=== PATIENT | female | born 1975 | race Caucasian/White ===

== ENCOUNTER → 2018-05-16 15:35 | Outpatient (CLI) | payer OTHER, SELFPAY | PROVIDERS: PCP Family Medicine; Visit Provider Physician Assistant | DX: N81.10 Cystocele, unspecified (principal) | CPT/HCPCS: 87210 ==

== ENCOUNTER 2018-06-23 07:57 | Day surgery (SDC) | payer OTHER, SELFPAY ==
[2018-06-16 16:30] VITALS: BMI 28.1
[2018-06-23] VITALS (13 sets, daily range): BP systolic 102–145; BP diastolic 56–91; PULSE 63–82; RESP 15–18; TEMP 36.2–37.3; O2SAT 95–100; BMI 29.0; BMI 28.1
--- NOTE | 2018-06-23 | PATH_ITS ---
[facility] Accession Number: [id number] . 01 Material submitted: . UTERUS,CERVIX AND BILATERAL FALLOPIAN TUBES . 02 Diagnosis: Uterus With Bilateral Fallopian Tubes: Early proliferative endometrium with disordered maturation and focal changes of glandular and stromal breakdown, negative for atypia. Atrophic changes, fallopian tubes. [facility] . 02 Electronically signed: . Austin Hancock MD, Pathologist NPI- [id number] . 01 Gross description: . Received in formalin, labeled uterus, cervix, bilateral fallopian tubes, is a uterus (125 grams, 4.4 cm AP, 10.2 cm SI, 4.8 cm ML) with attached fimbriated fallopian tubes (right: length-4.5 cm, diameter-0.4 cm; left: length-4.5 cm, diameter-0.4 cm). The ovaries are absent. The cervix (3.5 cm AP, 5.1 cm ML) has a vaginal cuff (up to 2.2 cm in depth), transverse os, and patent endocervical canal. The endometrium (average thickness-0.1 cm) is navarrete-pink smooth and flat. The myometrium (thickness-2.1 cm) is navarrete and unremarkable. The serosa is pale navarrete smooth and shiny. The fallopian tubes have salazar-purple smooth and shiny serosa and pale navarrete unremarkable lumens. Section code: (A1-A2) anterior cervix, bisected and submitted SI; (A3-A4) posterior cervix, bisected and submitted SI; (A5, A6) anterior endomyometrium; (A7, A8) posterior endomyometrium; (A9) right fallopian tube, hr representative serial section; (A10) right fimbria, bivalved, entirely submitted; (A11) left fallopian tube, hr representative serial section; (A12) left fimbria, bivalved, entirely submitted. ([id number]) /[facility] . 02 Pathologist provided ICD-10: N81.4 . 02 CPT . 569842 Performed at: 01 [facility] [address] [place] [address], [place], [place] [id number] MD Bernabe Smith MD Phone: [phone] Performed at: [address] [place] [id number] [place], [place] [id number] MD Kwesi Burrell MD Phone: [phone]
--- NOTE | 2018-06-23 09:14 | PM.PREOP ---
Pre-operative Note Interval Note Pre-op Check: Yes History & Physical Reviewed by Physician Changes: No
--- NOTE | 2018-06-23 09:21 | SUR.OPER ---
Lithotomy on padded OR bed. Joppa Pad Positioner under torso. Head on pillow, arms padded and tucked at sides. Legs secured in padded yellow fins stirrups.
[2018-06-23] MEDS: LACTATED RINGERS 1,000 ML 100 ML IV ×3 (09:37→23:37)
[2018-06-23] MEDS: APREPITANT 40 MG CAPSULE PO (09:40)
[2018-06-23] MEDS: CEFAZOLIN 2 GM/100 ML FROZ.PIGGY IV (09:45)
[2018-06-23] MEDS: BUPIVACAINE 0.5% W/ EPI (PF) VIAL 30 ML INJ (11:00)
[2018-06-23] MEDS: fentaNYL 100 MCG/2 ML INJ 25 MCG IV ×2 (13:03→13:08)
[2018-06-23] MEDS: OXYCODONE/ACETAMINOPHEN 5/325 TABLET 2 TAB PO ×3 (14:29→23:02)
[2018-06-23] MEDS: LOSARTAN 25 MG TABLET PO (20:36)
[2018-06-23] MEDS: ATORVASTATIN 20 MG TABLET PO (20:36)
[2018-06-23] MEDS: DOCUSATE 250 MG CAPSULE PO (20:55)
[2018-06-24 05:52] VITALS: BP 121/64; PULSE 68; RESP 16; TEMP 36.5; O2SAT 97
[2018-06-24 06:15] LABS: Add Manual Diff / Slide Review NO; Basophils Percent Auto 0.1 % (0-2); Hematocrit 34.4 % (36-46); Hemoglobin 11.9 g/dL (12.0-16.0); Lymphocytes Percent Auto 9.6 % (25-40); Mean Corpuscular HGB Conc 34.7 % (30-36); Mean Corpuscular Hemoglobin 33.2 PG (26-34); Mean Corpuscular Volume 95.5 fL (80-100); Monocytes Percent Auto 7.6 % (3-14); Neutrophils Absolute Auto 8900 /uL (3000-5900); Neutrophils Percent Auto 82.7 % (50-75); Platelet Count 234 X10^3/uL (150-400); Red Cell Distribution Width 12.2 % (11.6-14.8); White Blood Cell Count 10.8 X10^3/uL (4.5-11.0)
[2018-06-24] MEDS: OXYCODONE/ACETAMINOPHEN 5/325 TABLET 2 TAB PO ×3 (06:40→11:56)
--- NOTE | 2018-06-24 06:55 | PC.NURSE ---
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 Maddi LYMAN'd, pt thought that she needed to void but unable to. Scant bloody drainage on shaggy pad.
[2018-06-24 07:50] VITALS: BP 123/74; PULSE 62; RESP 18; TEMP 36.6; O2SAT 97
[2018-06-24] MEDS: LOSARTAN 25 MG TABLET PO (09:27)
[2018-06-24] MEDS: DOCUSATE 250 MG CAPSULE PO (09:27)
--- NOTE | 2018-06-24 11:41 | PC.NURSE ---
Addendum entered by Karen Quintanilla R.N. 06/24/18 12:27: Pt had a small amount of bleeding when inserting mitchell catheter from vagina, and also a small amount of bleeding in the urine. Pt has stitches to the distal end of her vagina that are cdi. Wearing a shaggy pad with minimal bleeding. Original Note: Assess- Pt is a&ox3. Mitchell catheter taken out at 0645. Pt voided a small amount that was unmeasureble as it missed the hat. Then around 1015 pt was able to void 100cc and then up and voided 50cc more. Pt bladder scanned for above 999 in bladder.Called who gave orders to in/out cath pt and then do post void residual. After straight cath pt had 800cc of yellow clear urine out and 84cc left in bladder. Phoned Dr. Gonsales about this and she ordered pt to have a mitchell catheter inserted until saturday and she can go home today. Will go over leg bag teaching with patient and how to change bags. She is not happy about having to take mitchell home with her and states that it feels like she has to void all the time. Pts mother out here and stated that pt was unhappy about having the catheter and wondered if she could stay another night and try to go to the bathroom on her own. Called Trisha Al of [facility], and most likely pt would have to have the mitchell catheter in until saturday, as when the bladder is stretched it takes a few days to recover. Pt is also going to go home with oral antibiotics bid. Given 1 percocet earlier and a bit helpful.
--- NOTE | 2018-06-24 14:50 | CM.DANOTE ---
DCP Chart Review/Discharge Home Patient is a 43 year old female who was admitted on 06/23/18 for LAVH MARCUS Salpingectomy. Pt has [facility] for insurance and her PCP is Dr. Moon. EMR was reviewed. Per MD, pt is medically stable to d/c home today with no identified barriers to discharge. Per RN, pt having some urinary retention and discharging home with straight cath supplies. No bedside assessment due to lack of needs identified and triage needs. Plan: Patient to d/c home today via POV and no SW needs at this time. SAL Watts
--- NOTE | 2018-07-18 12:18 | PM.GYNOP.1 ---
Operative Date/Time/Diagnoses Date of procedure: 06/23/18 Time of procedure: 10:45 Pre-op diagnosis: Uterine prolapse Cystocele Rectocele Post-op diagnosis: same Procedure: Procedures Operation Date: 06/23/18 09:45 Actual Procedures Side Surgeon s Laparoscopic Salpingectomy Bilateral Tila Gonsales MD p Colporrhaphy Anterior/Posterior Colporrhaphy WITH PERINEORRAPHY MD bao Ng Laparoscopic Assisted Vag Hysterectomy Tila Gonsales MD Indications: Uterine prolapse Cystocele and rectocele Surgeon: Tila Gonsales Inspector Barrel: Felix Huber Anesthesia Type: General Operative Notes Findings: 7 week size prolapsed uterus Third-degree rectocele Third-degree cystocele Normal tubes and ovaries Closure Type: primary Specimen(s): left tube, right tube and uterus Applied: catheter Estimated blood loss (mL): 75 Blood products transfused: none Procedure in detail: Complications: none Post-operative Condition: stable Disposition: PACU Plan for aftercare: To Acute Care after recovery
== END 2018-06-24 12:53 | disposition home or self-care (01) ==
LOC: OR 07:58 → AC 07:59
PROVIDERS: PCP Family Medicine; Visit Provider Obstetrics & Gynecology
PROC: 0UT74ZZ Resection of Bilateral Fallopian Tubes, Percutaneous Endoscopic Approach (ICD-10-PCS; CPT 58661; 2018-06-23 09:45)
PROC: (CPT 58552; 2018-06-23 09:45)
PROC: 0UT9FZZ Resection of Uterus, Via Natural or Artificial Opening With Percutaneous Endoscopic Assistance (ICD-10-PCS; CPT 58552; 2018-06-23 09:45)
DX: N81.2 Incomplete uterovaginal prolapse (principal); N81.6 Rectocele
CPT/HCPCS: 58552; 57260; 36415; 85025; J0690; J1100; J2250; J2405; J2704; J3010; J8501

== ENCOUNTER 2018-06-24 20:50 | Emergency (ER) | payer OTHER, SELFPAY ==
[2018-06-23 09:05] VITALS: BMI 29.0
[2018-06-24 21:28] VITALS: BP 162/78; PULSE 74; RESP 16; TEMP 36.5; O2SAT 100; BMI 29.0
[2018-06-24 21:40] LABS: Bacteria Urine None Seen; RBC Urine None Seen (0-5/HPF); WBC Urine None Seen (0-5/HPF)
[2018-06-24 21:42] LABS: Appearance Urine UA CLEAR; Bilirubin Urine UA NEGATIVE (NEGATIVE); Color Urine UA YELLOW; Glucose Urine UA NEGATIVE (Normal); Ketones Urine UA NEGATIVE (NEGATIVE); Leukocyte Esterase Urine UA NEGATIVE (NEGATIVE); Nitrite Urine UA Negative (Negative); Occult Blood Urine UA TRACE-LYSED (Negative); Protein Urine UA NEGATIVE (Negative); Urobilinogen Urine UA 0.2 E.U./dL (0.2); pH Urine UA 5.5 (4.5-8.0)
[2018-06-24 21:52] LABS: Culture Indicated Urine Cult Not Indicated
--- NOTE | 2018-06-24 23:12 | ED.FEMALEGU ---
HPI - Female Genitourinary General Chief complaint: Urogenital-Female Stated complaint: THINKS PROBLEM WITH URINARY CATHETER Time Seen by Provider: 06/24/18 22:24 Source: patient Mode of arrival: ambulatory Limitations: no limitations History of Present Illness HPI Narrative: Patient is here for evaluation of problems with her urinary catheter. The day prior to arrival here in the emergency department patient had a hysterectomy performed here at [facility]. She states that she had the Linda catheter in place overnight and had it removed the morning of her visit here to the ER. She remained in the hospital. She states she did not urinate within 3 hr of the catheter being removed so she states that they ?put another 1 in to drain my bladder ?and then this 1 was removed. She states that she again did not urinate so they placed another Linda catheter and left it in. She was discharged home. She states since then she has had quite a bit of pain from the Linda catheter and cramping. Related Data Home Medications Medication Instructions Recorded Confirmed aspirin 81 mg PO DAILY 06/17/18 06/23/18 atorvastatin 20 mg PO QPM 06/17/18 06/23/18 losartan 25 mg PO BID 06/23/18 06/23/18 multivitamin 1 tab PO DAILY 06/23/18 06/23/18 Previous Rx's Medication Instructions Recorded losartan [Cozaar] 50 mg PO QDAY #90 tab 01/08/17 nitrofurantoin 1 cap PO Q12H 5 Days #10 cap 06/24/18 monohydrate/macrocrystals 100 mg capsule oxycodone-acetaminophen [Percocet] 2 tab PO Q4-6H PRN #30 tab 06/24/18 Allergies Allergy/AdvReac Type Severity Reaction Status Date / Time No Known Drug Allergies Allergy Verified 06/23/18 09:14 Review of Systems Constitutional Denies fever(s) Cardiovascular Denies dyspnea Respiratory Denies cough and Denies dyspnea Genitourinary Comments: Pain and cramping from the Linda catheter Integumentary/Breasts Denies pruritus, Denies lesions and Denies rash Hematologic/Lymphatic Denies easy bleeding and Denies easy bruising [facility] Medical History Dyslipidemia (Acute) Heart murmur, systolic (Acute) Ischemic cardiomyopathy (Acute) Lupus (Acute) Malar rash (Acute) Positive GENA (antinuclear antibody) (Acute) Uterine prolapse (Acute) Hypertension (Chronic 2013) Rosacea (Chronic) Aortic stenosis (Resolved 2013) Myocardial infarction (Resolved) Surgical History H/O hernia repair (Acute) Anesthesia (Resolved) History of abdominoplasty (Resolved 2005) History of angioplasty (Resolved 09/2014) Status post LASIK surgery (Resolved) Family History Father Age: 66 Esophageal cancer Hypertension High cholesterol Mother Age: 65 Hypertension Social History marital status: household members: spouse, family and children Smoking Status: Never smoker alcohol intake: current substance use type: does not use Exam Initial Vital Signs Initial Vital Signs: Vital Signs Temperature 97.7 F 06/24/18 21:28 Pulse Rate 74 06/24/18 21:28 Respiratory Rate 16 06/24/18 21:28 Blood Pressure 162/78 H 06/24/18 21:28 Pulse Oximetry 100 06/24/18 21:28 Const General: cooperative, healthy appearing, well developed, well groomed and No acute distress Orientation: alert, awake and oriented x3 HENMT Head: normal to inspection and normocephalic Resp Effort & Inspection: normal respiratory effort Skin Lesions: no lesions Rashes: no rashes Neuro General: alert, awake and oriented x3 Cognition: normal cognition Speech: speech normal Extrem General: normal to inspection and capillary refill normal Psych Appearance: grossly normal and well kempt Course Orders Ordered: ED Orders 06/24/18 21:39 Urinalysis and Microscopic Stat Discontinued Medications Lidocaine HCl (Xylocaine Jelly 2%) 1 applic TOP NOW ONE Stop: 06/24/18 23:33 Last Admin: 06/25/18 00:13 Dose: 1 applic Vital Signs - 8 hr 06/24/18 21:28 06/25/18 00:05 Temperature 97.7 F 98.2 F Pulse Rate 74 72 Respiratory Rate 16 18 Blood Pressure 162/78 H 152/70 H Pulse Oximetry 100 100 MDM - Female Genitourinary Lab Data Lab Results 06/24/18 Range/Units 21:39 Urine Color Yellow Urine Appearance Clear Urine pH 5.5 (4.5-8.0) Ur Specific [place] 1.010 (1.000-1.035) Urine Protein Negative (Negative) Urine Glucose (UA) Negative (Normal) g/dL Urine Ketones Negative (NEGATIVE) Urine Occult Blood Trace-lysed (Negative) Urine Nitrate Negative (Negative) Urine Bilirubin Negative (NEGATIVE) Urine Urobilinogen 0.2 (0.2) E.U./dL Ur Leukocyte Esterase Negative (NEGATIVE) Urine RBC None seen (0-5/HPF) Urine WBC None seen (0-5/HPF) Urine Bacteria None seen (None) Ur Culture Indicated? Cult not indicated Micro UA Comment Not Reportable MDM Narrative Medical decision making narrative: Had a long discussion with the patient regarding her symptoms. We did discuss why she had the catheter in. She states she does have a follow up on Saturday with her blowing weasand provider to have the catheter removed. We did discuss her options to include leaving the Linda catheter in and starting her on an antispasm medication in prescribing her some lidocaine jelly for the irritation. Informed her that this was probably her best option given the fact that she failed 2x do to void earlier today. We also discussed the option of removing the catheter here in the emergency department and setting another due to void for her at home. Informed her that taking the catheter out here in the emergency department may mean that she would have to return to the ER to have another catheter placed. Also informed her that if we took it out there is the possibility that she would be able to urinate on her own and she could avoid having the catheter in. After this discussion the patient opted to have the catheter removed here in the ER. Nursing staff here in the emergency department who took the catheter out informed me that they were somewhat concerned that the catheter was not initially in the right place. Nursing staff stated that the amount of the catheter that came out of the urethra was less than with a would have expected. Patient did try to use the bathroom here in the emergency department before leaving however was unable to. She was given lidocaine jelly for the irritation at the urethra. Informed the patient that if she did not urinate in 6 hr that she needed to increase her fluid intake and if she still has not urinated by 8 hr she needed to return to the emergency department. She was informed that she could return sooner if she felt like her abdomen was distending are she was becoming more uncomfortable. She expressed understanding and agreement with plan. Discharge Plan Departure Patient Disposition: Home, Self-Care Clinical Impression: Complication of Linda catheter Discharge Date/Time: 06/25/18 00:05 Interventions: ED Discharge Assessment Last Done: 06/25/18 00:05 Instructions: DI for Urinary Retention in Women Activity Restrictions/Additional Instructions: If you have not urinated within 8 hr of discharge from the emergency department you do need to be seen again. You can call the OB provider for a follow-up or return here to the emergency department. Return sooner if you start having more pain or worsening abdominal distention. Continue all of your medications as directed. Prescriptions: No Action losartan [Cozaar] 50 MG tablet 50 mg PO QDAY Qty: 90 RF: 3 nitrofurantoin monohyd/m-cryst [Macrobid] 100 mg capsule 1 cap PO Q12H 5 Days Qty: 10 RF: 0 atorvastatin 80 mg Tablet 20 mg PO QPM RF: 0 aspirin 81 mg Tablet,Delayed Release (Dr/Ec) 81 mg PO DAILY RF: 0 multivitamin Tablet 1 tab PO DAILY RF: 0 losartan 50 mg tablet 25 mg PO BID RF: 0 oxycodone-acetaminophen [Percocet] 5-325 mg tablet 2 tab PO Q4-6H PRN (Reason: pain) Qty: 30 RF: 0
[2018-06-25 00:05] VITALS: BP 152/70; PULSE 72; RESP 18; TEMP 36.8; O2SAT 100
[2018-06-25] MEDS: LIDOCAINE JELLY 2% 5 ML 1 APPLIC TOP (00:13)
== END 2018-06-25 00:05 | disposition home or self-care (01) ==
PROVIDERS: Emergency Provider Emergency Medicine; Family Provider Family Medicine; PCP Family Medicine; Referring Provider Obstetrics & Gynecology
DX: T83.9XXA Unspecified complication of genitourinary prosthetic device, implant and graft, initial encounter (principal)
CPT/HCPCS: 51798; 81001; 99283

== ENCOUNTER → 2018-07-18 17:00 | Outpatient (CLI) | payer OTHER, SELFPAY ==
[2018-06-23 09:05] VITALS: BMI 29.0
[2018-07-18 18:03] LABS: HEMOLYSIS < 15 (0-50); Iron 80 ug/dL (37-170)
[2018-07-18 18:13] LABS: Percent Iron Saturation 20 % (15-50); Total Iron Binding Capacity 393 ug/dL (265-497); Transferrin 320 mg/dL (206-381)
[2018-07-18 18:18] LABS: Free T4, Direct Thyroxine 1.01 ng/dL (0.78-2.19)
[2018-07-18 18:32] LABS: Thyroid Stimulating Hormone 1.96 uIU/mL (0.47-4.68)
== END ==
PROVIDERS: PCP Family Medicine; Visit Provider Obstetrics & Gynecology
DX: L56.9 Acute skin change due to ultraviolet radiation, unspecified (principal); L65.9 Nonscarring hair loss, unspecified
CPT/HCPCS: 36415; 83540; 83550; 84439; 84443

== ENCOUNTER → 2018-11-06 10:20 | Outpatient (CLI) | payer OTHER, SELFPAY ==
[2018-06-23 09:05] VITALS: BMI 29.0
--- NOTE | 2018-11-06 10:22 | DI.RAD.S_ITS ---
PROCEDURE: XR CERVICAL SPINE 2V OR 3V INDICATIONS: cervical neck pain TECHNIQUE: 3 view(s) of the cervical spine were acquired. COMPARISON: None. FINDINGS: Bones: No fractures or dislocations to the T1 level. The lateral masses of C1 appear intact on the odontoid view. No suspicious bony lesions. Diffuse facet arthropathy. Endplate spurring and sclerosis with mild narrowing of the C5-C6 disc space. Minimal levocurvature Soft tissues: No prevertebral soft tissue swelling. IMPRESSION: Diffuse facet arthropathy and mild C5-C6 disc degeneration Dictated by: Olu Reid M.D. on 11/06/2018 at 12:26 Approved by: Olu Reid M.D. on 11/06/2018 at 12:27
== END ==
PROVIDERS: PCP Family Medicine; Visit Provider Family Medicine
DX: M50.322 Other cervical disc degeneration at C5-C6 level (principal); M47.812 Spondylosis without myelopathy or radiculopathy, cervical region
CPT/HCPCS: 72040

== ENCOUNTER → 2018-11-12 15:23 | Outpatient (CLI) | payer OTHER, SELFPAY ==
[2018-06-23 09:05] VITALS: BMI 29.0
--- NOTE | 2018-11-12 | DI.MG.S_ITS ---
BILATERAL DIGITAL SCREENING MAMMOGRAM 3D/2D WITH CAD: 11/12/2018 CLINICAL: Routine screening. Family history of breast cancer. Comparison is made to exams dated: 10/25/2017 mammogram, 01/19/2016 mammogram, and 01/03/2015 mammogram - [facility]. There are scattered fibroglandular elements in both breasts. Current study was also evaluated with a Computer Aided Detection (CAD) system. No significant masses, calcifications, or other findings are seen in either breast. There has been no significant interval change. IMPRESSION: NEGATIVE There is no mammographic evidence of malignancy. A 1 year screening mammogram is recommended. This exam was interpreted at Station ID: [id number]. NOTE: For mammograms, a report in lay terms will be sent to the patient. Approximately 15% of breast malignancies will not be visualized mammographically. In the management of a palpable breast mass, a negative mammogram must not discourage biopsy of a clinically suspicious lesion. Electronically Signed By: Bernabe vicente/jhonny:11/12/2018 16:05:50 letter sent: Normal Exam ACR BI-RADS Category 1: Negative [id number]
== END ==
PROVIDERS: PCP Family Medicine; Visit Provider Family Medicine
DX: Z12.31 Encounter for screening mammogram for malignant neoplasm of breast (principal); Z80.3 Family history of malignant neoplasm of breast
CPT/HCPCS: 77063; 77067

== ENCOUNTER 2019-01-13 16:00 | Outpatient (RCR) | payer OTHER, SELFPAY ==
[2018-06-23 09:05] VITALS: BMI 29.0
--- NOTE | 2018-09-11 13:13 | PT.OIE ---
Current Diagnoses Other female genital prolapse (09/11/18) Past Medical History (Last Reviewed 06/25/18 @ 01:32 by Rajinder Kauffman DO) Dyslipidemia (Acute) Heart murmur, systolic (Acute) Ischemic cardiomyopathy (Acute) Lupus (Acute) Malar rash (Acute) Positive GENA (antinuclear antibody) (Acute) Uterine prolapse (Acute) Hypertension (Chronic 2013) Rosacea (Chronic) Aortic stenosis (Resolved 2013) Myocardial infarction (Resolved) Past Surgical History (Last Reviewed 06/25/18 @ 01:32 by Rajinder Kauffman DO) H/O hernia repair (Acute) Anesthesia (Resolved) History of abdominoplasty (Resolved 2005) History of angioplasty (Resolved 09/2014) Status post LASIK surgery (Resolved) Provider Visit Care Team Role Provider Type Micky Moon MD Family Provider Physician Primary Care Provider Specialty: Family Practice Address: [address] [place] [address] Email: [email or web address] Tila Gonsales MD Attending Provider Physician Specialty: ORNAMENTAL PLASTER STICKER Address: [address] [place] [address] Email: [email or web address] Physical Therapy Initial Evaluation PT-OP-A Visit Information Start: 09/11/18 11:45 Freq: Status: Active Protocol: Document 09/11/18 11:46 [facility] (Rec: 09/11/18 12:00 [facility] [email or web address]) Out-Patient Physical Therapy Visit Information Visit Information Visit Type Initial Evaluation Visit Start Time 09:45 Visit Stop Time 10:30 Total Visit Minutes 45 Visit Number 1 Evaluation Information Evaluation Date 09/11/18 PT-OP-B Current Condition Start: 09/11/18 11:45 Freq: Status: Active Protocol: Document 09/11/18 11:46 [facility] (Rec: 09/11/18 12:00 [facility] [email or web address]) Current Condition History of Current Condition Onset Date May 2018 Current Complaints pelvic floor weakness History of Current Condition Ashley is a 43 year old female who underwent a hysterectomy with bladder and rectum repair in May 2018. She reports her complaints of pelvic pressure and leakage are gone now since the surgery. At this point she would like to strengthen her pelvic floor to prevent further prolapse from occuring. She is active at [facility] and would like guidance on pelvic floor facilitation with her exercises and avoiding placing downward pressure on her pelvic floor. Treatment Goals Patient/Caregiver Goals Treatment goals include preventing any further prolapse and strengthening the pelvic floor to allow Ashley to continue with her exercise routine at [facility] PT-OP-I Pelvic Floor Start: 09/11/18 11:45 Freq: Status: Active Protocol: Document 09/11/18 11:46 [facility] (Rec: 09/11/18 12:00 [facility] [email or web address]) Pelvic Floor Assessment Urine Pelvic Floor Surgery Yes Pelvic Clock Pelvic Clock 12-3 Atrophy Pelvic Clock 3-6 Atrophy Pelvic Clock 6-9 Atrophy Pelvic Clock 9-12 Atrophy Contraction Ability Voluntary Contraction Weak Voluntary Relaxation Weak Manual Muscle Testing Left 2 Manual Muscle Testing Right 2 Manual Muscle Testing Anterior 1 Manual Muscle Testing Posterior 2 Muscle Endurance (Seconds) 5 Comments Pelvic Floor Comments Ashley has difficulty facilitating the lateral and anterior gurrola of the levator ani. With cueing she was able to give a palpable contraction. She has some tenderness with intercourse in the perineum but was not tender to palpation today. PT-OP-Q Treatments Start: 09/11/18 11:45 Freq: Status: Active Protocol: Document 09/11/18 12:55 [facility] (Rec: 09/11/18 13:05 [facility] [email or web address]) Therapeutic Exercises Supine Exercises 3 Supine Exercise Name roll outs Equipment Used level 3 theraband Reps/Minutes x 10 2 Supine Exercise Name roll ins Side bilateral Reps/Minutes 10 reps 1 Supine Exercise Name pelvic floor long holds with EMG biofeedback Side bilateral Reps/Minutes 10 reps holding 10 seconds Comments 7.6 uv average with 17.9 uv max Sidelying Exercises 1 Sidelying Exercise Name clam shells Side bilateral Comments work towards 3 sets of 10 reps Self-Care/Home Management Treatment Education Patient Education Home Exercise Program PT-OP-T Assessment and Plan Start: 09/11/18 11:45 Freq: Status: Active Protocol: Document 09/11/18 12:55 [facility] (Rec: 09/11/18 13:05 [facility] [email or web address]) Physical Therapy Assessment Rehab Potential Rehabilitation Potential Excellent Evaluation Complexity Number of Personal Factors/Comorbidities 0 Number of Body Systems Impaired 1-2 Clinical Presentation at Evaluation Stable Impairments Impairments Activity Tolerance Soft Tissue Mobility Strength Tone Goals Three Impairment Ashley needs education on avoiding downward pressure with strengthening ex. Shelter Goal (LTG) Ashley is educated on strategies to lift weights without straining or increasing intra abdominal pressure with cross fit activities LTG Duration 8 weeks Two Impairment decreased endurance of the levator ani Short Term Goal (STG) Improve endurance of the levator ani to 10 second holds in supine STG Duration 4 weeks One Impairment pelvic floor weakness Aviation Program Manager Goal (LTG) Improve strength of the pelvic floor and Ashley is demonstrating improved recruitment of the lateral gurrola and anterior portion of the levator ani LTG Duration 8 weeks Assessment Summary Assessment Ashley presents to physical therapy today with signs and symptoms of pelvic floor weakness s/p hysterectomy. She is doing well symptoms keller but is trying to be proactive in strengthening her pelvic floor to prevent relapse of her prolapse and to be able to progress with her cross fit exercises without straining. With examination she is very weak in her levator ani musculature and has difficulty recruiting her anterior and lateral gurrola of the pelvic floor. Ashley is a good candidate for PT focusing on improved pelvic floor strength and endurance. Physical Therapy Plan Frequency and Duration Frequency of Treatment 1x/Week Duration of Treatment 8 weeks Plan of Care Start Date 09/11/18 Plan of Care End Date 11/06/18 Therapeutic Interventions Therapeutic Interventions Home Exercise Program Neuromuscular Re-education Patient/Caregiver Education Therapeutic Exercises Modalities Biofeedback Electric Stimulation Next Visit Focus/Plan Next Note Type Treatment Note Next Visit Plan work on progressing lateral pelvic wall strength and anterior pelvic floor recruitment
--- NOTE | 2018-09-11 13:14 | PT.OPPOC ---
Current Diagnoses Other female genital prolapse (09/11/18) Provider Visit Care Team Role Provider Type Micky Moon MD Family Provider Physician Primary Care Provider Specialty: Family Practice Address: [address] [place] [address], [id number] Email: [email or web address] Tila Gonsales MD Attending Provider Physician Specialty: NUT STEAMER Address: [address] [place] [address], [id number] Email: [email or web address] Plan Of Care PT-OP-T Assessment and Plan Start: 09/11/18 11:45 Freq: Status: Active Protocol: Document 09/11/18 12:55 [facility] (Rec: 09/11/18 13:05 [facility] [email or web address]) Physical Therapy Assessment Rehab Potential Rehabilitation Potential Excellent Evaluation Complexity Number of Personal Factors/Comorbidities 0 Number of Body Systems Impaired 1-2 Clinical Presentation at Evaluation Stable Impairments Impairments Activity Tolerance Soft Tissue Mobility Strength Tone Goals Three Impairment Ashley needs education on avoiding downward pressure with strengthening ex. Air Vice Marshal Goal (LTG) Ashley is educated on strategies to lift weights without straining or increasing intra abdominal pressure with cross fit activities LTG Duration 8 weeks Two Impairment decreased endurance of the levator ani Short Term Goal (STG) Improve endurance of the levator ani to 10 second holds in supine STG Duration 4 weeks One Impairment pelvic floor weakness Skilled Nursing Goal (LTG) Improve strength of the pelvic floor and Ashley is demonstrating improved recruitment of the lateral gurrola and anterior portion of the levator ani LTG Duration 8 weeks Assessment Summary Assessment Ashley presents to physical therapy today with signs and symptoms of pelvic floor weakness s/p hysterectomy. She is doing well symptoms keller but is trying to be proactive in strengthening her pelvic floor to prevent relapse of her prolapse and to be able to progress with her cross fit exercises without straining. With examination she is very weak in her levator ani musculature and has difficulty recruiting her anterior and lateral gurrola of the pelvic floor. Ashley is a good candidate for PT focusing on improved pelvic floor strength and endurance. Physical Therapy Plan Frequency and Duration Frequency of Treatment 1x/Week Duration of Treatment 8 weeks Plan of Care Start Date 09/11/18 Plan of Care End Date 11/06/18 Therapeutic Interventions Therapeutic Interventions Home Exercise Program Neuromuscular Re-education Patient/Caregiver Education Therapeutic Exercises Modalities Biofeedback Electric Stimulation Next Visit Focus/Plan Next Note Type Treatment Note Next Visit Plan work on progressing lateral pelvic wall strength and anterior pelvic floor recruitment Plan of Care Dates Plan of Care Start Date 09/11/18 Plan of Care End Date 11/06/18 Please Sign and Return: I have reviewed this Plan of Care and certify that the skilled therapy services above are required to meet the patient?s needs. Physician Signature Date Printed Name and Credentials Clinical Instructor Signature Printed Name and Credentials
--- NOTE | 2018-11-06 10:25 | PT.OTRE ---
Current Diagnoses Other female genital prolapse (11/06/18) Past Medical History (Last Reviewed 10/10/18 @ 10:33 by Bety Ng LPN) Dyslipidemia (Acute) Heart murmur, systolic (Acute) Ischemic cardiomyopathy (Acute) Lupus (Acute) Malar rash (Acute) Positive GENA (antinuclear antibody) (Acute) Uterine prolapse (Acute) Hypertension (Chronic 2013) Rosacea (Chronic) Aortic stenosis (Resolved 2013) Myocardial infarction (Resolved) Surgical History (Last Reviewed 10/10/18 @ 10:33 by Bety Ng LPN) H/O hernia repair (Acute) Anesthesia (Resolved) History of abdominoplasty (Resolved 2005) History of angioplasty (Resolved 09/2014) Status post LASIK surgery (Resolved) Provider Visit Care Team Role Provider Type Micky Moon MD Family Provider Physician Primary Care Provider Specialty: Family Practice Address: [address] [place] [address] Email: [email or web address] Tila Gonsales MD Attending Provider Physician Specialty: [employer] Address: [address] [place] [address] Email: [email or web address] Physical Therapy Re-Evaluation PT-OP-A Visit Information Start: 09/11/18 11:45 Freq: Status: Active Protocol: Document 11/06/18 10:15 AMH (Rec: 11/06/18 10:25 AMH [email or web address]) Out-Patient Physical Therapy Visit Information Visit Information Visit Type Treatment Note Visit Start Time 09:45 Visit Stop Time 10:15 Total Visit Minutes 30 Visit Number 2 Evaluation Information Evaluation Date 09/11/18 PT-OP-B Current Condition Start: 09/11/18 11:45 Freq: Status: Active Protocol: Document 09/11/18 11:46 AMH (Rec: 09/11/18 12:00 AMH [email or web address]) Current Condition History of Current Condition Onset Date May 2018 Current Complaints pelvic floor weakness History of Current Condition Jaime is a 43 year old female who underwent a hysterectomy with bladder and rectum repair in May 2018. She reports her complaints of pelvic pressure and leakage are gone now since the surgery. At this point she would like to strengthen her pelvic floor to prevent further prolapse from occuring. She is active at [facility] and would like guidance on pelvic floor facilitation with her exercises and avoiding placing downward pressure on her pelvic floor. Treatment Goals Patient/Caregiver Goals Treatment goals include preventing any further prolapse and strengthing the pelvic floor to allow Ashley to continue with her exercise routine at [facility] PT-OP-C Subjective Start: 09/11/18 11:45 Freq: Status: Active Protocol: Document 11/06/18 10:15 AMH (Rec: 11/06/18 10:25 AMH [email or web address]) OP-PT Subjective Patient Comments Patient Comments Ashley reports she has been working on her exercises and she is not experiencing any leakage or pelvic pressure. She has been doing her cross fit activities without any trouble PT-OP-I Pelvic Floor Start: 09/11/18 11:45 Freq: Status: Active Protocol: Document 11/06/18 10:15 AMH (Rec: 11/06/18 10:25 AMH [email or web address]) Pelvic Floor Assessment Pelvic Clock Pelvic Clock Other improved tone of the pelvic floor today with reevaluation Contraction Ability Manual Muscle Testing Left 3 Manual Muscle Testing Right 3 Manual Muscle Testing Anterior 3 Manual Muscle Testing Posterior 3 Muscle Endurance (Seconds) 10 PT-OP-Q Treatments Start: 09/11/18 11:45 Freq: Status: Active Protocol: Document 11/06/18 10:15 AMH (Rec: 11/06/18 10:25 AMH [email or web address]) Therapeutic Exercises Sidelying Exercises 1 Sidelying Exercise Name clam shells Side bilateral Comments work towards 3 sets of 10 reps Standing Exercises 2 Standing Exercise Name standing side steps in a squat with theraband 1 Standing Exercise Name hip hikes PT-OP-T Assessment and Plan Start: 09/11/18 11:45 Freq: Status: Active Protocol: Document 11/06/18 10:15 AMH (Rec: 11/06/18 10:25 AMH [email or web address]) Physical Therapy Assessment Progress Towards Goals Progress Towards Goals Progressing Toward Goals Progress Comments Good progress towards goals with improved Pelvic floor strength and endurance. Assessment Summary Assessment Ashley returns to PT today after working on her exercises independently since the end of August. She is symptom free at this point and has been able to do her cross fit exercises. With examination today she is recruiting more of her levator ani and endurance is improved. She is a little weaker in her left side wall than her right and with hip strength testing a little weaker on the left as well. In standing she does drop her left hip. I added in some dynamic hip strengthening exercises for her today to add into her program. She would like to have one more scheduled visit for biofeedback. Biofeedback was not performed today as Ashley did not have her electrode with her. Physical Therapy Plan Frequency and Duration Frequency of Treatment 1x/Week Duration of Treatment 8 weeks Plan of Care Start Date 11/06/18 Plan of Care End Date 01/01/19 Therapeutic Interventions Therapeutic Interventions Home Exercise Program Neuromuscular Re-education Patient/Caregiver Education Therapeutic Exercises Modalities Biofeedback Electric Stimulation Next Visit Focus/Plan Next Note Type Treatment Note Next Visit Plan recheck pelvic floor on EMG biofeedback and review dynamic strengthening exercises
--- NOTE | 2019-01-14 09:34 | PT.OTN ---
Current Diagnoses Other female genital prolapse (01/13/19) Physical Therapy Treatment Note PT-OP-A Visit Information Start: 09/11/18 11:45 Freq: Status: Active Protocol: Document 01/14/19 09:19 [facility] (Rec: 01/14/19 09:34 [facility] [email or web address]) Out-Patient Physical Therapy Visit Information Visit Information Visit Type Treatment Note Visit Start Time 16:00 Visit Stop Time 16:45 Total Visit Minutes 45 Visit Number 3 Evaluation Information Evaluation Date 09/11/18 PT-OP-B Current Condition Start: 09/11/18 11:45 Freq: Status: Active Protocol: Document 09/11/18 11:46 [facility] (Rec: 09/11/18 12:00 [facility] [email or web address]) Current Condition History of Current Condition Onset Date May 2018 Current Complaints pelvic floor weakness History of Current Condition Jaime is a 43 year old female who underwent a hysterectomy with bladder and rectum repair in May 2018. She reports her complaints of pelvic pressure and leakage are gone now since the surgery. At this point she would like to strengthen her pelvic floor to prevent further prolapse from occuring. She is active at [facility] and would like guidance on pelvic floor facilitation with her exercises and avoiding placing downward pressure on her pelvic floor. Treatment Goals Patient/Caregiver Goals Treatment goals include preventing any further prolapse and strengthing the pelvic floor to allow Ashley to continue with her exercise routine at [facility] PT-OP-C Subjective Start: 09/11/18 11:45 Freq: Status: Active Protocol: Document 01/14/19 09:19 [facility] (Rec: 01/14/19 09:34 [facility] [email or web address]) OP-PT Subjective Patient Comments Patient Comments Ashley reports she has been doing really well but did have one episode at [facility] recently where she experienced a little urinary leakage PT-OP-I Pelvic Floor Start: 09/11/18 11:45 Freq: Status: Active Protocol: Document 01/14/19 09:19 [facility] (Rec: 01/14/19 09:34 [facility] [email or web address]) Pelvic Floor Assessment Pelvic Clock Pelvic Clock Other improved tone of the pelvic floor today with reevaluation SEMG (uV) Baseline 0 10 Second Contraction 8.7 Recruitment Pattern Good Relaxation Good Holding Good Stability of Hold Good SEMG Stability of Rest Good Contraction Ability Voluntary Contraction Moderate Voluntary Relaxation Moderate Manual Muscle Testing Left 3 Manual Muscle Testing Right 3 Manual Muscle Testing Anterior 3 Manual Muscle Testing Posterior 3 Muscle Endurance (Seconds) 10 PT-OP-Q Treatments Start: 09/11/18 11:45 Freq: Status: Active Protocol: Document 01/14/19 09:19 [facility] (Rec: 01/14/19 09:34 [facility] [email or web address]) Therapeutic Exercises Supine Exercises 4 Supine Exercise Name templates for coordination and eccentric control 1 Supine Exercise Name pelvic floor long holds with EMG biofeedback Side bilateral Reps/Minutes 10 reps holding 10 seconds Comments 78.7 average with 15.3 uv max Standing Exercises 3 Standing Exercise Name standing pelvic floor contractions Comments education on leaning over a counter to relax the abdominal wall PT-OP-T Assessment and Plan Start: 09/11/18 11:45 Freq: Status: Active Protocol: Document 01/14/19 09:19 [facility] (Rec: 01/14/19 09:34 [facility] [email or web address]) Physical Therapy Assessment Goals Three Impairment Ashley needs education on avoiding downward pressure with strengthening ex. Short Term Goal (STG) GOAL MET 01/14/19 Fundraising Assistant Goal (LTG) Ashley is educated on strategies to lift weights without straining or increasing intra abdominal pressure with cross fit activities LTG Duration GOAL MET 01/14/19 Two Impairment decreased endurance of the levator ani Short Term Goal (STG) Improve endurance of the levator ani to 10 second holds in supine STG Duration GOAL MET 01/14/19 One Impairment pelvic floor weakness Intermediate Goal (LTG) Improve strength of the pelvic floor and Ahsley is demonstrating improved recruitment of the lateral gurrola and anterior portion of the levator ani LTG Duration GOAL MET 01/14/19 Progress Towards Goals Progress Towards Goals Goals Met Assessment Summary Assessment Ashley returns to PT today for one last follow up with her pelvic floor exercise. We discussed exercises in crossfit that are most likely causing too much pressure down on her bladder. She has also switched to a new weight watchers diet and she notes this has caused some constipation. I explained the relationship between constipation and bladder irritation as well. With manual reassessment of the pelvic floor today I do not feel any bladder prolapse. She is activating her pelvic floor better overall and endurance is better. She will continue to work on her exercises independently and modify her exercises at crossfit to avoid downward pressure on the pelvic floor. Physical Therapy Plan Discharge Physical Therapy Discharge Reasons Goals Met Discharge Comments Discharge at this time to a independent home exercise program.
== END 2019-07-31 08:27 | disposition home or self-care (01) ==
LOC: PHYS 16:00
PROVIDERS: Family Provider Family Medicine; PCP Family Medicine; Visit Provider Obstetrics & Gynecology
DX: N81.89 Other female genital prolapse (principal)
CPT/HCPCS: 95831; 97110; 97161; 97164

== ENCOUNTER → 2019-01-23 07:16 | Outpatient (CLI) | payer OTHER, SELFPAY ==
[2018-06-23 09:05] VITALS: BMI 29.0
[2019-01-23 08:08] LABS: Add Manual Diff / Slide Review NO; Basophils Absolute Auto 100 /uL (0-100); Basophils Percent Auto 1.9 % (0-2); Eosinophils Absolute Auto 300 /uL (0-450); Hematocrit 39.9 % (36-46); Hemoglobin 13.5 g/dL (12.0-16.0); Lymphocytes Absolute Auto 1300 /uL (1100-4500); Lymphocytes Percent Auto 32.5 % (25-40); Mean Corpuscular HGB Conc 33.7 % (30-36); Mean Corpuscular Hemoglobin 31.8 PG (26-34); Mean Corpuscular Volume 94.3 fL (80-100); Monocytes Absolute Auto 400 /uL (0-900); Monocytes Percent Auto 10.7 % (3-14); Neutrophils Absolute Auto 1900 /uL (1500-7000); Neutrophils Percent Auto 47.9 % (50-75); Platelet Count 220 X10^3/uL (150-400); Red Blood Cell Count 4.24 X10^6/uL (4.0-5.2); Red Cell Distribution Width 12.8 % (11.6-14.8)
[2019-01-23 08:12] LABS: Alanine Aminotransferase 34 IU/L (9-52); Albumin 4.4 g/dL (3.5-5.0); Albumin Globulin Ratio 1.4 (1.0-2.8); Alkaline Phosphatase 66 U/L (38-126); Aspartate Aminotransferase 31 IU/L (14-36); BUN Creatinine Ratio 18.9 (6-22); Bilirubin Total 0.8 mg/dL (0.2-1.3); Blood Urea Nitrogen 17 mg/dL (7-17); Calcium 9.4 mg/dL (8.4-10.2); Carbon Dioxide 26 mmol/L (22-32); Chloride 102 mmol/L (98-107); Cholesterol 290 mg/dL (140-199); Estimated Glomerular Filt Rate > 60.0 mL/min (>60); Globulin 3.1 g/dL (1.7-4.1); Glucose 81 mg/dL (70-100); HDL Cholesterol 49 mg/dL (40-60); HEMOLYSIS < 15 (0-50); LDL Cholesterol Calculated 217 mg/dL (<100); Sodium 138 mmol/L (137-145); Total Protein 7.5 g/dL (6.3-8.2); Triglycerides 119 mg/dL (35-150)
[2019-01-23 08:48] LABS: TSH w/ Reflex to FT4 1.75 uIU/mL (0.47-4.68)
[2019-01-27 20:23] LABS: ANA Pattern SPECKLED; ANA Screen POSITIVE (Negative); DNA Antibody Crithidia IFA NEGATIVE (Negative); Rheumatoid Factor <14 IU/mL; Sjogren Antiboday SS-A <1.0 NEG AI (<1.0 NEGATIVE); Sjogren Antiboday SS-B <1.0 NEG AI (<1.0 NEGATIVE); Sm Antibody <1.0 NEG AI (<1.0 NEGATIVE); Sm/RNP Antibody <1.0 NEG AI (<1.0 NEGATIVE)
== END ==
PROVIDERS: PCP Family Medicine; Visit Provider Family Medicine
DX: E78.2 Mixed hyperlipidemia (principal); I10 Essential (primary) hypertension; I25.10 Atherosclerotic heart disease of native coronary artery without angina pectoris
CPT/HCPCS: 36415; 80053; 80061; 84443; 85025; 86038; 86430

== ENCOUNTER → 2019-01-29 17:35 | Outpatient (CLI) | payer OTHER, SELFPAY ==
[2018-06-23 09:05] VITALS: BMI 29.0
[2019-02-04 13:31] LABS: B2-Glycoprotein I IgA AB < 9 SAU (< OR = 20); B2-Glycoprotein I IgG AB < 9 SGU (< OR = 20); B2-Glycoprotein I IgM AB < 9 SMU (< OR = 20); Cardiolipin Ab IgA < 11 APL; Cardiolipin Ab IgG < 14 GPL; Cardiolipin Ab IgM < 12 MPL; Phos. Serine AB IgM < 25 U/mL; dRVVT Screen 31 seconds (< OR = 45)
== END ==
PROVIDERS: PCP Family Medicine; Visit Provider Family Medicine
DX: I25.10 Atherosclerotic heart disease of native coronary artery without angina pectoris (principal)
CPT/HCPCS: 36415; 85613; 86146; 86147; 86148

== ENCOUNTER → 2019-05-09 11:08 | Outpatient (CLI) | payer OTHER, SELFPAY ==
[2018-06-23 09:05] VITALS: BMI 29.0
--- NOTE | 2019-05-09 11:11 | DI.MRI.S_ITS ---
PROCEDURE: MR CERVICAL SPINE WO CON INDICATIONS: cervical neck pain with ridiculopathy TECHNIQUE: Noncontrast sagittal T1 spin echo and T2 fast spin echo, sagittal STIR, foraminal oblique sagittal T2 fast spin echo, and axial gradient echo or T2 fast spin echo through the cervical spine. COMPARISON: None. FINDINGS: Image quality: Excellent. Alignment and Curvature: There is normal bony alignment. Bone Marrow: Marrow demonstrates normal overall signal. Spinal Cord: Visualized spinal cord has normal size and signal. No cerebellar tonsillar herniation. Paraspinous Soft Tissues: No paravertebral masses. Prevertebral soft tissues are normal in thickness. C2-C3: Normal appearance. C3-C4: Normal appearance. C4-C5: Normal appearance. C5-C6: Mild degenerative disc disease, greater on the left than the right with a small posterior asymmetric left greater than right disc bulge and facet osteoarthritis also is present at this level that is greater on the left than the right resulting in asymmetric foraminal stenosis and slight left-sided spinal stenosis, likely impinging asymmetrically on the course of the left C6 nerve root.. C6-C7: The degenerative disc disease at this level is less prominent, than at C5-6. The left-sided predominance is again seen but less pronounced than at the level above, and there is minimal left-sided foraminal stenosis as a result. C7-T1: Normal appearance. IMPRESSION: No disc herniation is seen. There is asymmetric degenerative disc disease and facet osteoarthritis at C5-6 and C6-7, left greater than right. This results in likelihood of asymmetric impingement on the course of the left C6 nerve root but the degree of foraminal stenosis on the left at C6-7 is so slight that nerve root impingement likely is not present. Dictated by: Kt Gonzalez M.D. on 05/11/2019 at 13:02 Approved by: Kt Gonzalez M.D. on 05/11/2019 at 13:06
== END ==
PROVIDERS: PCP Family Medicine; Visit Provider Family Medicine
DX: M50.122 Cervical disc disorder at C5-C6 level with radiculopathy (principal); M47.22 Other spondylosis with radiculopathy, cervical region
CPT/HCPCS: 72141

== ENCOUNTER 2019-05-20 16:00 | Outpatient (RCR) | payer OTHER, SELFPAY ==
[2018-06-23 09:05] VITALS: BMI 29.0
--- NOTE | 2018-12-17 16:05 | PT.OIE ---
Current Diagnoses Cervicalgia (12/17/18) Abnormal posture (12/17/18) Past Medical History (Last Reviewed 10/10/18 @ 10:33 by Bety Ng LPN) Dyslipidemia (Acute) Heart murmur, systolic (Acute) Ischemic cardiomyopathy (Acute) Lupus (Acute) Malar rash (Acute) Positive GENA (antinuclear antibody) (Acute) Uterine prolapse (Acute) Hypertension (Chronic 2013) Rosacea (Chronic) Aortic stenosis (Resolved 2013) Myocardial infarction (Resolved) Past Surgical History (Last Reviewed 10/10/18 @ 10:33 by Bety Ng LPN) H/O hernia repair (Acute) Anesthesia (Resolved) History of abdominoplasty (Resolved 2005) History of angioplasty (Resolved 09/2014) Status post LASIK surgery (Resolved) Provider Visit Care Team Role Provider Type Micky Moon MD Attending Provider Physician Primary Care Provider Specialty: [facility] Practice Address: [address] [place] [address] Email: [email or web address] Physical Therapy Initial Evaluation PT-OP-A Visit Information Start: 12/18/18 14:57 Freq: Status: Active Protocol: Document 12/17/18 16:05 RCC (Rec: 12/18/18 15:12 RCC [email or web address]) Out-Patient Physical Therapy Visit Information Visit Information Visit Type Initial Evaluation Visit Start Time 16:05 Visit Stop Time 16:50 Total Visit Minutes 45 Visit Number 1 Number of INSPECTOR COLD WORKING Visits 0 Evaluation Information Evaluation Date 12/17/18 PT-OP-B Current Condition Start: 12/18/18 14:57 Freq: Status: Active Protocol: Document 12/17/18 16:05 RCC (Rec: 12/18/18 15:12 RCC [email or web address]) Current Condition History of Current Condition Current Complaints neck pain, pain radiating into the LUE History of Current Condition Pt is a 43 y/o female presenting to physical therapy with a c/o B neck pain, radiating down the LUE into the hand and fingers. Onset date unclear, but has been an ongoing issue for a while. 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 Pt is seeing a chiropractor intermittently with some results but no full resolution of symptoms. Pt states her whole hand can go numb at times, and also is exacerbated with sleep. Pt is R hand dominant. Pt notes that she is doing an exercise in the car to do a chin tuck which helps out quite a bit. She does Crossfit 3 days per week and would like to be able to tolerate this without neck issues. She is currently also being seen by our Women's Health phyiscal therapist, but is planning on d/c from that soon. Pt with occasional NELSON bilaterally in occipital and posterior parietal regions. Prior Treatments and Tests Radiograph cervical spine : diffuse facet arthorpathy and C5-6 disc degeneration with endplate spurring and sclerosis. Treatment Goals Patient/Caregiver Goals decrease pain, return to Crossfit without neck pain Prior Functional Status Baseline Function- Recreation/Hobbies Crossfit without issues Current Functional Impairments (Reported) Functional Limitations- Recreation/ unable to perform Crossfit Hobbies without increased neck and LUE pain. Personal Factors Other Personal Factors That May Effect HTN, cardiac history of [place] Therapy/Recovery PT-OP-C Subjective Start: 12/18/18 14:57 Freq: Status: Active Protocol: Document 12/17/18 16:05 RCC (Rec: 12/18/18 15:12 RCC [email or web address]) Patient Questionnaires Neck Disability Index NDI Score 8 Quick Dash- Upper Extremity Quick Dash UE Score 15.1 OP-PT Pain Assessment Location bilateral neck Intensity 3 Scale Used Numeric (1 - 10) PT-OP-F Manual Assessment Start: 12/18/18 14:57 Freq: Status: Active Protocol: Document 12/17/18 16:05 RCC (Rec: 12/18/18 17:47 RCC [email or web address]) Manual Assessments Soft Tissue Assessment Soft Tissue Mobility Assessment tenderness to palpation: B upper trapezius, levator, suboccipitals PT-OP-H Neuro Start: 12/18/18 14:57 Freq: Status: Active Protocol: Document 12/17/18 16:05 RCC (Rec: 12/18/18 17:47 RCC [email or web address]) Sensation Evaluation Comments Summary Comments WNL during examination but pt admits to all finger numbness occasionally L hand Deep Tendon Reflex & Clonus Assessment Deep Tendon Reflex Bilateral Brachioradialis Deep Tendon Reflex 2+ Normal Bilateral Tricep Deep Tendon Reflex 2+ Normal Bilateral Bicep Deep Tendon Reflex 2+ Normal PT-OP-J Posture/Palpation/Skin Start: 12/18/18 14:57 Freq: Status: Active Protocol: Document 12/17/18 16:05 RCC (Rec: 12/18/18 17:47 RCC [email or web address]) Posture Evaluation Comments Posture Comments mild SB L of the head on neck, forward head and rounded shoulders bilaterally PT-OP-K Range of Motion Start: 12/18/18 14:57 Freq: Status: Active Protocol: Document 12/17/18 16:05 RCC (Rec: 12/18/18 17:47 RCC [email or web address]) Cervical Spine Range of Motion Cervical Spine Active Degrees Testing Position Sitting Flexion 45 Extension 55 Rotation Left 55 Rotation Right 75 Lateral Flexion Left 34 Lateral Flexion Right 36 ROM Limitations Soft Tissue Tightness Bony Restriction Comments pain on L neck with flexion, extension, SB bilaterally, rotation L Shoulder Goniometric Range of Motion Shoulder Measured in Degrees Left Active Shoulder ROM WFL Yes Right Active Shoulder ROM WFL Yes PT-OP-L Special Tests Start: 12/18/18 14:57 Freq: Status: Active Protocol: Document 12/17/18 16:05 RCC (Rec: 12/18/18 17:47 RCC [email or web address]) Special Tests Cervical Spine Special Tests Vertebral Artery Test Results negative Foraminal Compression Test Results positive L Spurling's Test Test Results positive L Shoulder Special Tests Empty Can Test Results negative B Lift-Off Rotator Cuff Test Results negative B Harrell Bruce Impingement Test Results positive L Neural Special Tests- Upper Body Median Nerve Tension Test Results positive L Comments negative R Ulnar Nerve Tension Test Results negative B Radial Nerve Tension Test Results positive L Comments negative R PT-OP-M Strength Start: 12/18/18 14:57 Freq: Status: Active Protocol: Document 12/17/18 16:05 RCC (Rec: 12/18/18 17:47 RCC [email or web address]) Shoulder Strength Shoulder Manual Muscle Testing Left Flexion 4+ Good+ Abduction (C5) 5 Normal External Rotation 4+ Good+ Internal Rotation 5 Normal Right Flexion 5 Normal Abduction (C5) 5 Normal External Rotation 5 Normal Internal Rotation 5 Normal Elbow/Forearm Strength Elbow and Forearm Manual Muscle Testing Right Flexion (C6) 5 Normal Extension (C7) 5 Normal Left Flexion (C6) 5 Normal Extension (C7) 5 Normal PT-OP-Q Treatments Start: 12/18/18 14:57 Freq: Status: Active Protocol: Document 12/17/18 16:05 RCC (Rec: 12/18/18 17:47 RCC [email or web address]) Manual Therapy Treatment Soft Tissue Mobilization upper trap and levator Body Location bilateral Mobilization Type Rolling Sustained Pressure Intensity/Depth Moderate Body Position Hooklying Manual Traction Cervical Body Position Hooklying Reps/Duration 5 min Nerve Glides radial Nerve L radial nerve Body Position Hooklying median Nerve left median nerve Body Position Hooklying PT-OP-T Assessment and Plan Start: 12/18/18 14:57 Freq: Status: Active Protocol: Document 12/17/18 16:05 RCC (Rec: 12/18/18 17:47 RCC [email or web address]) Physical Therapy Assessment Goals Neck Disability Index Impairment 16% score on NDI Short Term Goal (STG) 10% or less rated on Neck Disability Index to demonstrate decreased neck pain with functional activities. STG Duration 4 weeks Penitentiary Goal (LTG) 4% or less rated on Neck Disability Index to demonstrate decreased neck pain with functional activities. LTG Duration 8 weeks recreational activities Impairment unable to tolerate recreational activities without increased pain Penitentiary Goal (LTG) pt will return to Crossfit without increased pain in neck and L shoulder 3x/week prior to d/c. LTG Duration 8 weeks cervical spine ROM Impairment decreased cervical spine ROM Short Term Goal (STG) cervical spine AROM flexion to 50 degrees SB to 40 degrees L rotation to 65 degrees STG Duration 4 weeks Penitentiary Goal (LTG) cervical spine AROM SB to 45 degrees bilaterally L rotation to 75 degrees LTG Duration 8 weeks Median and Radial Nerve Tension Impairment neural tension: L median and radial nerve Ground Crew Linesman Goal (LTG) Negative nerve tension testing of L median and radial nerve to demonstrate improved mobility of nerves and decrease numbness/tingling with sleep. LTG Duration 8 weeks Assessment Summary Assessment Pt presents with signs/ symptoms consistent with DDD and facet issues consistent with findings on radiograph. Pt with increased tension in both the radial and median nerve on the L side only, and stiffness of the head on neck, along with increased tension bilaterally in cervical spine mm. Pt had good relief of pain with manual traction, and recommend trial of mechanical traction during this episode of care to assess tolerance to this treatment, as well as potential home cervical traction unit for pain management if demonstrates decreased pain and improvements. Pt would greatly benefit from physical therapy to progress her ROM, improve posture, decrease neural tension, manual therapy and modalities for pain control, and progression of HEP to return back to prior level of function and participate in recreational activities ( Crossfit) without neck pain and restrictions. Physical Therapy Plan Frequency and Duration Frequency of Treatment 2x/Week Duration of Treatment 8 weeks Plan of Care Start Date 12/17/18 Plan of Care End Date 02/11/19 Therapeutic Interventions Therapeutic Interventions Aquatic Therapy Home Exercise Program Joint Mobilizations Manual Therapy Neuromuscular Re-education Patient/Caregiver Education Self-Care/Home Management Soft Tissue Mobilization Taping Therapeutic Activities Therapeutic Exercises Modalities Cold Pack/Ice Massage Electric Stimulation Hot Packs Traction- Mechanical Ultrasound Next Visit Focus/Plan Next Note Type Treatment Note Next Visit Plan L median and radial nerve glides, assess scapular strengthening with emphasis on inhibition of UT, review neck stretches; trial mechanical traction to assess tolerance, modalities for pain
--- NOTE | 2019-01-06 17:00 | PT.OTN ---
Current Diagnoses Cervicalgia (01/06/19) Physical Therapy Treatment Note PT-OP-A Visit Information Start: 12/18/18 14:57 Freq: Status: Active Protocol: Document 01/06/19 16:48 EA (Rec: 01/06/19 16:58 EA [id number]) Out-Patient Physical Therapy Visit Information Visit Information Visit Type Treatment Note Visit Start Time 16:00 Visit Stop Time 16:40 Visit Number 2 PT-OP-B Current Condition Start: 12/18/18 14:57 Freq: Status: Active Protocol: Document 12/17/18 16:05 RCC (Rec: 12/18/18 15:12 RCC [email or web address]) Current Condition History of Current Condition Current Complaints neck pain, pain radiating into the LUE History of Current Condition Pt is a 43 y/o female presenting to physical therapy with a c/o B neck pain, radiating down the LUE into the hand and fingers. Onset date unclear, but has been an ongoing issue for a while. 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 Pt is seeing a chiropractor intermittently with some results but no full resolution of symptoms. Pt states her whole hand can go numb at times, and also is exacerbated with sleep. Pt is R hand dominant. Pt notes that she is doing an exercise in the car to do a chin tuck which helps out quite a bit. She does Crossfit 3 days per week and would like to be able to tolerate this without neck issues. She is currently also being seen by our Women's Health phyiscal therapist, but is planning on d/c from that soon. Pt with occasional NELSON bilaterally in occipital and posterior parietal regions. Prior Treatments and Tests Radiograph cervical spine : diffuse facet arthorpathy and C5-6 disc degeneration with endplate spurring and sclerosis. Treatment Goals Patient/Caregiver Goals decrease pain, return to Crossfit without neck pain Prior Functional Status Baseline Function- Recreation/Hobbies Crossfit without issues Current Functional Impairments (Reported) Functional Limitations- Recreation/ unable to perform Crossfit Hobbies without increased neck and LUE pain. Personal Factors Other Personal Factors That May Effect HTN, cardiac history of [place] Therapy/Recovery PT-OP-C Subjective Start: 12/18/18 14:57 Freq: Status: Active Protocol: Document 01/06/19 16:48 EA (Rec: 01/06/19 16:58 EA [id number]) OP-PT Subjective Patient Comments Patient Comments Patient reports both numbness occurs mostly in the middle of the night also happens with temporarily paralysis; states back to normal when she shakes her arms. Pt reports pinky fingers ar the most affected on both arms. Pt reports 3 x crossfit workout and no cooldown and stretch to both neck and shoulders. PT-OP-F Manual Assessment Start: 12/18/18 14:57 Freq: Status: Active Protocol: Document 12/17/18 16:05 RCC (Rec: 12/18/18 17:47 RCC [email or web address]) Manual Assessments Soft Tissue Assessment Soft Tissue Mobility Assessment tenderness to palpation: B upper trapezius, levator, suboccipitals PT-OP-H Neuro Start: 12/18/18 14:57 Freq: Status: Active Protocol: Document 12/17/18 16:05 RCC (Rec: 12/18/18 17:47 RCC [email or web address]) Sensation Evaluation Comments Summary Comments WNL during examination but pt admits to all finger numbness occasionally L hand Deep Tendon Reflex & Clonus Assessment Deep Tendon Reflex Bilateral Brachioradialis Deep Tendon Reflex 2+ Normal Bilateral Tricep Deep Tendon Reflex 2+ Normal Bilateral Bicep Deep Tendon Reflex 2+ Normal PT-OP-J Posture/Palpation/Skin Start: 12/18/18 14:57 Freq: Status: Active Protocol: Document 12/17/18 16:05 RCC (Rec: 12/18/18 17:47 RCC [email or web address]) Posture Evaluation Comments Posture Comments mild SB L of the head on neck, forward head and rounded shoulders bilaterally PT-OP-K Range of Motion Start: 12/18/18 14:57 Freq: Status: Active Protocol: Document 12/17/18 16:05 RCC (Rec: 12/18/18 17:47 RCC [email or web address]) Cervical Spine Range of Motion Cervical Spine Active Degrees Testing Position Sitting Flexion 45 Extension 55 Rotation Left 55 Rotation Right 75 Lateral Flexion Left 34 Lateral Flexion Right 36 ROM Limitations Soft Tissue Tightness Bony Restriction Comments pain on L neck with flexion, extension, SB bilaterally, rotation L Shoulder Goniometric Range of Motion Shoulder Measured in Degrees Left Active Shoulder ROM WFL Yes Right Active Shoulder ROM WFL Yes PT-OP-L Special Tests Start: 12/18/18 14:57 Freq: Status: Active Protocol: Document 12/17/18 16:05 RCC (Rec: 12/18/18 17:47 RCC [email or web address]) Special Tests Cervical Spine Special Tests Vertebral Artery Test Results negative Foraminal Compression Test Results positive L Spurling's Test Test Results positive L Shoulder Special Tests Empty Can Test Results negative B Lift-Off Rotator Cuff Test Results negative B Harrell Bruce Impingement Test Results positive L Neural Special Tests- Upper Body Median Nerve Tension Test Results positive L Comments negative R Ulnar Nerve Tension Test Results negative B Radial Nerve Tension Test Results positive L Comments negative R PT-OP-M Strength Start: 12/18/18 14:57 Freq: Status: Active Protocol: Document 12/17/18 16:05 RCC (Rec: 12/18/18 17:47 RCC [email or web address]) Shoulder Strength Shoulder Manual Muscle Testing Left Flexion 4+ Good+ Abduction (C5) 5 Normal External Rotation 4+ Good+ Internal Rotation 5 Normal Right Flexion 5 Normal Abduction (C5) 5 Normal External Rotation 5 Normal Internal Rotation 5 Normal Elbow/Forearm Strength Elbow and Forearm Manual Muscle Testing Right Flexion (C6) 5 Normal Extension (C7) 5 Normal Left Flexion (C6) 5 Normal Extension (C7) 5 Normal PT-OP-Q Treatments Start: 12/18/18 14:57 Freq: Status: Active Protocol: Document 01/06/19 16:48 EA (Rec: 01/06/19 16:58 EA [id number]) Therapeutic Exercises Supine Exercises 3 Supine Exercise Name Passive stretch: traps, scalenes, LS Side bilateral Reps/Minutes x 30 SH x 2 reps 2 Side bilateral Reps/Minutes 10 reps Manual Therapy Treatment Soft Tissue Mobilization 1 Body Location Bilateral scalene Mobilization Type Myofascial Release Rolling Sustained Pressure Trigger Point Release Intensity/Depth Moderate Body Position Supine upper trap and levator Body Location bilateral Mobilization Type Rolling Sustained Pressure Intensity/Depth Moderate Body Position Hooklying Manual Traction Cervical Body Position Hooklying Reps/Duration 5 min PT-OP-R Modalities Start: 12/18/18 14:57 Freq: Status: Active Protocol: Document 01/06/19 16:48 EA (Rec: 01/06/19 16:58 EA [id number]) Electric Stimulation Electric Stimulation Interferential Current (IFC) Body Location both traps Duration (Minutes) 15 Intensity 16 Patient Position Hooklying Combined With Heat/Cold Hot Pack PT-OP-T Assessment and Plan Start: 12/18/18 14:57 Freq: Status: Active Protocol: Document 01/06/19 16:48 EA (Rec: 01/06/19 16:58 EA [id number]) Physical Therapy Assessment Assessment Summary Assessment Ken tests performed with high sensitivity with fainted radila pulse on both sides; tender to both scalene and left LS. based on patient workout history and symptoms time of recurrence, patient might possible with TOS. I recommended to perform traps, scalene and LS stretch after every workout and as well cool down exercises. Physical Therapy Plan Next Visit Focus/Plan Next Note Type Treatment Note Next Visit Plan Reconsidered TOS on both sides.
--- NOTE | 2019-02-11 17:41 | PT.OTN ---
Current Diagnoses Cervicalgia (02/11/19) Physical Therapy Treatment Note PT-OP-A Visit Information Start: 12/18/18 14:57 Freq: Status: Active Protocol: Document 02/11/19 16:45 [facility] (Rec: 02/11/19 17:41 DCW [id number]) Out-Patient Physical Therapy Visit Information Visit Information Visit Type Progress Note Visit Start Time 16:45 Visit Stop Time 17:30 Total Visit Minutes 45 Visit Number 3 Evaluation Information Evaluation Date 12/17/18 PT-OP-B Current Condition Start: 12/18/18 14:57 Freq: Status: Active Protocol: Document 12/17/18 16:05 [facility] (Rec: 12/18/18 15:12 [facility] [email or web address]) Current Condition History of Current Condition Current Complaints neck pain, pain radiating into the LUE History of Current Condition Pt is a 43 y/o female presenting to physical therapy with a c/o B neck pain, radiating down the LUE into the hand and fingers. Onset date unclear, but has been an ongoing issue for a while. 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 Pt is seeing a chiropractor intermittently with some results but no full resolution of symptoms. Pt states her whole hand can go numb at times, and also is exacerbated with sleep. Pt is R hand dominant. Pt notes that she is doing an exercise in the car to do a chin tuck which helps out quite a bit. She does Crossfit 3 days per week and would like to be able to tolerate this without neck issues. She is currently also being seen by our [facility] phyiscal therapist, but is planning on d/c from that soon. Pt with occasional NELSON bilaterally in occipital and posterior parietal regions. Prior Treatments and Tests Radiograph cervical spine : diffuse facet arthorpathy and C5-6 disc degeneration with endplate spurring and sclerosis. Treatment Goals Patient/Caregiver Goals decrease pain, return to Crossfit without neck pain Prior Functional Status Baseline Function- Recreation/Hobbies Crossfit without issues Current Functional Impairments (Reported) Functional Limitations- Recreation/ unable to perform Crossfit Hobbies without increased neck and LUE pain. Personal Factors Other Personal Factors That May Effect HTN, cardiac history of HI Therapy/Recovery PT-OP-C Subjective Start: 12/18/18 14:57 Freq: Status: Active Protocol: Document 02/11/19 16:45 DCW (Rec: 02/11/19 17:41 DCW [id number]) OP-PT Subjective Patient Comments Patient Comments Pt reports that when she remembers to perform her stretches at home, she does feel a bit better, but overall she is still having a lot of pain, stiffness, and numbness into her hands. PT-OP-F Manual Assessment Start: 12/18/18 14:57 Freq: Status: Active Protocol: Document 02/11/19 16:45 DCW (Rec: 02/11/19 17:35 DCW [id number]) Manual Assessments Soft Tissue Assessment Soft Tissue Mobility Assessment tenderness to palpation: B upper trapezius, levator, suboccipitals. Severe tone along scalenes bilaterally PT-OP-H Neuro Start: 12/18/18 14:57 Freq: Status: Active Protocol: Document 12/17/18 16:05 [facility] (Rec: 12/18/18 17:47 [facility] [email or web address]) Sensation Evaluation Comments Summary Comments WNL during examination but pt admits to all finger numbness occasionally L hand Deep Tendon Reflex & Clonus Assessment Deep Tendon Reflex Bilateral Brachioradialis Deep Tendon Reflex 2+ Normal Bilateral Tricep Deep Tendon Reflex 2+ Normal Bilateral Bicep Deep Tendon Reflex 2+ Normal PT-OP-J Posture/Palpation/Skin Start: 12/18/18 14:57 Freq: Status: Active Protocol: Document 12/17/18 16:05 RCC (Rec: 12/18/18 17:47 RCC [email or web address]) Posture Evaluation Comments Posture Comments mild SB L of the head on neck, forward head and rounded shoulders bilaterally PT-OP-K Range of Motion Start: 12/18/18 14:57 Freq: Status: Active Protocol: Document 02/11/19 16:45 DCW (Rec: 02/11/19 17:35 DCW [id number]) Cervical Spine Range of Motion Cervical Spine Active Degrees Testing Position Sitting Flexion 42 Extension 56 Rotation Left 53 Rotation Right 75 Lateral Flexion Left 34 Lateral Flexion Right 36 ROM Limitations Soft Tissue Tightness Bony Restriction Comments pain on L neck with flexion, extension, SB bilaterally, rotation L PT-OP-L Special Tests Start: 12/18/18 14:57 Freq: Status: Active Protocol: Document 12/17/18 16:05 RCC (Rec: 12/18/18 17:47 RCC [email or web address]) Special Tests Cervical Spine Special Tests Vertebral Artery Test Results negative Foraminal Compression Test Results positive L Spurling's Test Test Results positive L Shoulder Special Tests Empty Can Test Results negative B Lift-Off Rotator Cuff Test Results negative B Harrell Bruce Impingement Test Results positive L Neural Special Tests- Upper Body Median Nerve Tension Test Results positive L Comments negative R Ulnar Nerve Tension Test Results negative B Radial Nerve Tension Test Results positive L Comments negative R PT-OP-M Strength Start: 12/18/18 14:57 Freq: Status: Active Protocol: Document 12/17/18 16:05 RCC (Rec: 12/18/18 17:47 RCC [email or web address]) Shoulder Strength Shoulder Manual Muscle Testing Left Flexion 4+ Good+ Abduction (C5) 5 Normal External Rotation 4+ Good+ Internal Rotation 5 Normal Right Flexion 5 Normal Abduction (C5) 5 Normal External Rotation 5 Normal Internal Rotation 5 Normal Elbow/Forearm Strength Elbow and Forearm Manual Muscle Testing Right Flexion (C6) 5 Normal Extension (C7) 5 Normal Left Flexion (C6) 5 Normal Extension (C7) 5 Normal PT-OP-Q Treatments Start: 12/18/18 14:57 Freq: Status: Active Protocol: Document 02/11/19 16:45 DCW (Rec: 02/11/19 17:41 DCW [id number]) Manual Therapy Treatment Soft Tissue Mobilization 1 Body Location Bilateral scalene Mobilization Type Myofascial Release Rolling Strain/Counterstrain Sustained Pressure Trigger Point Release Intensity/Depth Moderate Body Position Supine upper trap and levator Body Location bilateral Mobilization Type Rolling Strain/Counterstrain Sustained Pressure Intensity/Depth Moderate Body Position Hooklying Manual Traction Cervical Body Position Hooklying Reps/Duration 10 minutes Other Other Manual Treatments Cervical spine PROM PT-OP-T Assessment and Plan Start: 12/18/18 14:57 Freq: Status: Active Protocol: Document 02/11/19 16:45 DCW (Rec: 02/11/19 17:41 DCW [id number]) Physical Therapy Assessment Goals Neck Disability Index Impairment 16% score on NDI Short Term Goal (STG) 10% or less rated on Neck Disability Index to demonstrate decreased neck pain with functional activities. STG Duration 4 weeks Penitentiary Goal (LTG) 4% or less rated on Neck Disability Index to demonstrate decreased neck pain with functional activities. LTG Duration 8 weeks recreational activities Impairment unable to tolerate recreational activities without increased pain Penitentiary Goal (LTG) pt will return to Crossfit without increased pain in neck and L shoulder 3x/week prior to d/c. LTG Duration 8 weeks cervical spine ROM Impairment decreased cervical spine ROM Short Term Goal (STG) cervical spine AROM flexion to 50 degrees SB to 40 degrees L rotation to 65 degrees STG Duration 4 weeks Log Feeder Goal (LTG) cervical spine AROM SB to 45 degrees bilaterally L rotation to 75 degrees LTG Duration 8 weeks Median and Radial Nerve Tension Impairment neural tension: L median and radial nerve Log Feeder Goal (LTG) Negative nerve tension testing of L median and radial nerve to demonstrate improved mobility of nerves and decrease numbness/tingling with sleep. LTG Duration 8 weeks Assessment Summary Assessment Discussed with pt different positioning pre-sleep to help loosen muscles prior to laying down to attempt to experience numbness at that time and decrease TOS symptoms during the night. Pt has largely not made any progress, however has been rather inconsistent with her therapy appointments and her HEP, hope further skilled therapy will improve pt's management of symptoms. Physical Therapy Plan Frequency and Duration Frequency of Treatment 2x/Week Duration of Treatment 10 weeks Plan of Care Start Date 02/11/19 Plan of Care End Date 04/22/19 Therapeutic Interventions Therapeutic Interventions Aquatic Therapy Home Exercise Program Joint Mobilizations Manual Therapy Neuromuscular Re-education Patient/Caregiver Education Self-Care/Home Management Soft Tissue Mobilization Taping Therapeutic Activities Therapeutic Exercises Modalities Cold Pack/Ice Massage Electric Stimulation Hot Packs Traction- Mechanical Ultrasound Next Visit Focus/Plan Next Note Type Treatment Note Next Visit Plan L median and radial nerve glides, assess scapular strengthening with emphasis on inhibition of UT, review neck stretches; trial mechanical traction to assess tolerance, modalities for pain
--- NOTE | 2019-02-11 17:42 | PT.OPPOC ---
Current Diagnoses Cervicalgia (02/11/19) Provider Visit Care Team Role Provider Type Micky Moon MD Attending Provider Physician Primary Care Provider Specialty: Family Practice Address: [address] [place] [address], [id number] Email: [email or web address] Plan Of Care PT-OP-T Assessment and Plan Start: 12/18/18 14:57 Freq: Status: Active Protocol: Document 02/11/19 16:45 DCW (Rec: 02/11/19 17:41 DCW [id number]) Physical Therapy Assessment Goals Neck Disability Index Impairment 16% score on NDI Short Term Goal (STG) 10% or less rated on Neck Disability Index to demonstrate decreased neck pain with functional activities. STG Duration 4 weeks Marine Steward Goal (LTG) 4% or less rated on Neck Disability Index to demonstrate decreased neck pain with functional activities. LTG Duration 8 weeks recreational activities Impairment unable to tolerate recreational activities without increased pain Marine Steward Goal (LTG) pt will return to Crossfit without increased pain in neck and L shoulder 3x/week prior to d/c. LTG Duration 8 weeks cervical spine ROM Impairment decreased cervical spine ROM Short Term Goal (STG) cervical spine AROM flexion to 50 degrees SB to 40 degrees L rotation to 65 degrees STG Duration 4 weeks Marine Steward Goal (LTG) cervical spine AROM SB to 45 degrees bilaterally L rotation to 75 degrees LTG Duration 8 weeks Median and Radial Nerve Tension Impairment neural tension: L median and radial nerve Fpc Goal (LTG) Negative nerve tension testing of L median and radial nerve to demonstrate improved mobility of nerves and decrease numbness/tingling with sleep. LTG Duration 8 weeks Assessment Summary Assessment Discussed with pt different positioning pre-sleep to help loosen muscles prior to laying down to attempt to experience numbness at that time and decrease TOS symptoms during the night. Pt has largely not made any progress, however has been rather inconsistent with her therapy appointments and her HEP, hope further skilled therapy will improve pt's management of symptoms. Physical Therapy Plan Frequency and Duration Frequency of Treatment 2x/Week Duration of Treatment 10 weeks Plan of Care Start Date 02/11/19 Plan of Care End Date 04/22/19 Therapeutic Interventions Therapeutic Interventions Aquatic Therapy Home Exercise Program Joint Mobilizations Manual Therapy Neuromuscular Re-education Patient/Caregiver Education Self-Care/Home Management Soft Tissue Mobilization Taping Therapeutic Activities Therapeutic Exercises Modalities Cold Pack/Ice Massage Electric Stimulation Hot Packs Traction- Mechanical Ultrasound Next Visit Focus/Plan Next Note Type Treatment Note Next Visit Plan L median and radial nerve glides, assess scapular strengthening with emphasis on inhibition of UT, review neck stretches; trial mechanical traction to assess tolerance, modalities for pain Plan of Care Dates Plan of Care Start Date 02/11/19 Plan of Care End Date 04/22/19 Please Sign and Return: I have reviewed this Plan of Care and certify that the skilled therapy services above are required to meet the patient?s needs. Physician Signature Date Printed Name and Credentials Clinical Instructor Signature Printed Name and Credentials
--- NOTE | 2019-03-24 18:42 | PT.OTN ---
Current Diagnoses Cervicalgia (03/24/19) Physical Therapy Treatment Note PT-OP-A Visit Information Start: 12/18/18 14:57 Freq: Status: Active Protocol: Document 03/24/19 16:45 HH (Rec: 03/24/19 18:41 HH [email or web address]) Out-Patient Physical Therapy Visit Information Visit Information Visit Type Progress Note Visit Note Pt has not been attending PT since 02/11 Visit Start Time 16:45 Visit Stop Time 17:40 Total Visit Minutes 55 Visit Number 4 PT-OP-B Current Condition Start: 12/18/18 14:57 Freq: Status: Active Protocol: Document 12/17/18 16:05 RCC (Rec: 12/18/18 15:12 RCC [email or web address]) Current Condition History of Current Condition Current Complaints neck pain, pain radiating into the LUE History of Current Condition Pt is a 43 y/o female presenting to physical therapy with a c/o B neck pain, radiating down the LUE into the hand and fingers. Onset date unclear, but has been an ongoing issue for a while. 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 Pt is seeing a chiropractor intermittently with some results but no full resolution of symptoms. Pt states her whole hand can go numb at times, and also is exacerbated with sleep. Pt is R hand dominant. Pt notes that she is doing an exercise in the car to do a chin tuck which helps out quite a bit. She does Crossfit 3 days per week and would like to be able to tolerate this without neck issues. She is currently also being seen by our [facility] phyiscal therapist, but is planning on d/c from that soon. Pt with occasional NELSON bilaterally in occipital and posterior parietal regions. Prior Treatments and Tests Radiograph cervical spine : diffuse facet arthorpathy and C5-6 disc degeneration with endplate spurring and sclerosis. Treatment Goals Patient/Caregiver Goals decrease pain, return to Crossfit without neck pain Prior Functional Status Baseline Function- Recreation/Hobbies Crossfit without issues Current Functional Impairments (Reported) Functional Limitations- Recreation/ unable to perform Crossfit Hobbies without increased neck and LUE pain. Personal Factors Other Personal Factors That May Effect HTN, cardiac history of [place] Therapy/Recovery PT-OP-C Subjective Start: 12/18/18 14:57 Freq: Status: Active Protocol: Document 03/24/19 16:45 HH (Rec: 03/24/19 18:41 HH [email or web address]) OP-PT Subjective Patient Comments Patient Comments states my neck pain still the same, numbness on B UEs at every night and has difficult time sleeping. PT-OP-F Manual Assessment Start: 12/18/18 14:57 Freq: Status: Active Protocol: Document 02/11/19 16:45 DCW (Rec: 02/11/19 17:35 DCW [id number]) Manual Assessments Soft Tissue Assessment Soft Tissue Mobility Assessment tenderness to palpation: B upper trapezius, levator, suboccipitals. Severe tone along scalenes bilaterally PT-OP-H Neuro Start: 12/18/18 14:57 Freq: Status: Active Protocol: Document 12/17/18 16:05 RCC (Rec: 12/18/18 17:47 RCC [email or web address]) Sensation Evaluation Comments Summary Comments WNL during examination but pt admits to all finger numbness occasionally L hand Deep Tendon Reflex & Clonus Assessment Deep Tendon Reflex Bilateral Brachioradialis Deep Tendon Reflex 2+ Normal Bilateral Tricep Deep Tendon Reflex 2+ Normal Bilateral Bicep Deep Tendon Reflex 2+ Normal PT-OP-J Posture/Palpation/Skin Start: 12/18/18 14:57 Freq: Status: Active Protocol: Document 12/17/18 16:05 RCC (Rec: 12/18/18 17:47 RCC [email or web address]) Posture Evaluation Comments Posture Comments mild SB L of the head on neck, forward head and rounded shoulders bilaterally PT-OP-K Range of Motion Start: 12/18/18 14:57 Freq: Status: Active Protocol: Document 02/11/19 16:45 DCW (Rec: 02/11/19 17:35 DCW [id number]) Cervical Spine Range of Motion Cervical Spine Active Degrees Testing Position Sitting Flexion 42 Extension 56 Rotation Left 53 Rotation Right 75 Lateral Flexion Left 34 Lateral Flexion Right 36 ROM Limitations Soft Tissue Tightness Bony Restriction Comments pain on L neck with flexion, extension, SB bilaterally, rotation L PT-OP-L Special Tests Start: 12/18/18 14:57 Freq: Status: Active Protocol: Document 12/17/18 16:05 RCC (Rec: 12/18/18 17:47 RCC [email or web address]) Special Tests Cervical Spine Special Tests Vertebral Artery Test Results negative Foraminal Compression Test Results positive L Spurling's Test Test Results positive L Shoulder Special Tests Empty Can Test Results negative B Lift-Off Rotator Cuff Test Results negative B Harrell Bruce Impingement Test Results positive L Neural Special Tests- Upper Body Median Nerve Tension Test Results positive L Comments negative R Ulnar Nerve Tension Test Results negative B Radial Nerve Tension Test Results positive L Comments negative R PT-OP-M Strength Start: 12/18/18 14:57 Freq: Status: Active Protocol: Document 12/17/18 16:05 RCC (Rec: 12/18/18 17:47 RCC [email or web address]) Shoulder Strength Shoulder Manual Muscle Testing Left Flexion 4+ Good+ Abduction (C5) 5 Normal External Rotation 4+ Good+ Internal Rotation 5 Normal Right Flexion 5 Normal Abduction (C5) 5 Normal External Rotation 5 Normal Internal Rotation 5 Normal Elbow/Forearm Strength Elbow and Forearm Manual Muscle Testing Right Flexion (C6) 5 Normal Extension (C7) 5 Normal Left Flexion (C6) 5 Normal Extension (C7) 5 Normal PT-OP-Q Treatments Start: 12/18/18 14:57 Freq: Status: Active Protocol: Document 03/24/19 16:45 HH (Rec: 03/24/19 18:41 HH [email or web address]) Therapeutic Exercises Sitting Exercises iso cervical contraction Side bilateral Equipment Used self manual resistance Reps/Minutes 15 secs x 10 mins Comments ext, lateral flexion Standing Exercises median nerve glide Side bilateral Equipment Used wall Reps/Minutes 10 mins Comments with cervical lateral flexion L LAT stretch Side left Equipment Used wall edge Reps/Minutes 10 mins Comments with L trunk ROT and R SB Manual Therapy Treatment Soft Tissue Mobilization L lat Mobilization Type Cross-Friction Strumming Sustained Pressure Trigger Point Release Intensity/Depth Deep Body Position Prone 1 Body Location Bilateral scalene Mobilization Type Myofascial Release Rolling Strain/Counterstrain Sustained Pressure Trigger Point Release Intensity/Depth Moderate Body Position Supine upper trap and levator Body Location bilateral Mobilization Type Rolling Strain/Counterstrain Sustained Pressure Intensity/Depth Moderate Body Position Hooklying Manual Traction Cervical Body Position Hooklying Reps/Duration 10 minutes Nerve Glides median Nerve left median nerve Body Position Standing PT-OP-R Modalities Start: 12/18/18 14:57 Freq: Status: Active Protocol: Document 01/06/19 16:48 EA (Rec: 01/06/19 16:58 EA [id number]) Electric Stimulation Electric Stimulation Interferential Current (IFC) Body Location both traps Duration (Minutes) 15 Intensity 16 Patient Position Hooklying Combined With Heat/Cold Hot Pack PT-OP-T Assessment and Plan Start: 12/18/18 14:57 Freq: Status: Active Protocol: Document 03/24/19 16:45 HH (Rec: 03/24/19 18:41 HH [email or web address]) Physical Therapy Assessment Goals Neck Disability Index Impairment 16% score on NDI Short Term Goal (STG) 10% or less rated on Neck Disability Index to demonstrate decreased neck pain with functional activities. STG Duration 4 weeks File [employer] Data Entry Goal (LTG) 4% or less rated on Neck Disability Index to demonstrate decreased neck pain with functional activities. LTG Duration 8 weeks recreational activities Impairment unable to tolerate recreational activities without increased pain Senior Care Goal (LTG) pt will return to Crossfit without increased pain in neck and L shoulder 3x/week prior to d/c. LTG Duration 8 weeks cervical spine ROM Impairment decreased cervical spine ROM Short Term Goal (STG) cervical spine AROM flexion to 50 degrees SB to 40 degrees L rotation to 65 degrees STG Duration 4 weeks Senior Care Goal (LTG) cervical spine AROM SB to 45 degrees bilaterally L rotation to 75 degrees LTG Duration 8 weeks Median and Radial Nerve Tension Impairment neural tension: L median and radial nerve Senior Care Goal (LTG) Negative nerve tension testing of L median and radial nerve to demonstrate improved mobility of nerves and decrease numbness/tingling with sleep. LTG Duration 8 weeks Progress Towards Goals Progress Towards Goals Slow Progress due to Noncompliance Assessment Summary Assessment Pt has not attended PT since early January. Progress note today and pt was found to have significant L shoulder drop, tenderness at L RTC and L lat, and weakness at L lat. Tx focused on L lat flexibility, L scap upward rotation, iso strengthening of cervical musculature, median nerve glide. Pt reports feel good after session. Physical Therapy Plan Next Visit Focus/Plan Next Note Type Treatment Note Next Visit Plan reassess HEP L lat stretch, cervical strengthening, L median and radial nerve glides, assess scapular strengthening with emphasis on inhibition of UT, review neck stretches; trial mechanical traction to assess tolerance, modalities for pain
--- NOTE | 2019-03-30 17:25 | PT.OTN ---
Current Diagnoses Cervicalgia (03/30/19) Physical Therapy Treatment Note PT-OP-A Visit Information Start: 12/18/18 14:57 Freq: Status: Active Protocol: Document 03/30/19 17:17 EA (Rec: 03/30/19 17:24 EA [id number]) Out-Patient Physical Therapy Visit Information Visit Information Visit Type Treatment Note Visit Start Time 16:00 Visit Stop Time 16:40 Visit Number 5 PT-OP-B Current Condition Start: 12/18/18 14:57 Freq: Status: Active Protocol: Document 12/17/18 16:05 RCC (Rec: 12/18/18 15:12 RCC [email or web address]) Current Condition History of Current Condition Current Complaints neck pain, pain radiating into the LUE History of Current Condition Pt is a 43 y/o female presenting to physical therapy with a c/o B neck pain, radiating down the LUE into the hand and fingers. Onset date unclear, but has been an ongoing issue for a while. 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 Pt is seeing a chiropractor intermittently with some results but no full resolution of symptoms. Pt states her whole hand can go numb at times, and also is exacerbated with sleep. Pt is R hand dominant. Pt notes that she is doing an exercise in the car to do a chin tuck which helps out quite a bit. She does Crossfit 3 days per week and would like to be able to tolerate this without neck issues. She is currently also being seen by our Women[facility] phyiscal therapist, but is planning on d/c from that soon. Pt with occasional NELSON bilaterally in occipital and posterior parietal regions. Prior Treatments and Tests Radiograph cervical spine : diffuse facet arthorpathy and C5-6 disc degeneration with endplate spurring and sclerosis. Treatment Goals Patient/Caregiver Goals decrease pain, return to Crossfit without neck pain Prior Functional Status Baseline Function- Recreation/Hobbies Crossfit without issues Current Functional Impairments (Reported) Functional Limitations- Recreation/ unable to perform Crossfit Hobbies without increased neck and LUE pain. Personal Factors Other Personal Factors That May Effect HTN, cardiac history of [place] Therapy/Recovery PT-OP-C Subjective Start: 12/18/18 14:57 Freq: Status: Active Protocol: Document 03/30/19 17:17 EA (Rec: 03/30/19 17:24 EA [id number]) OP-PT Subjective Patient Comments Patient Comments Pt reports tight left neck and difficult to turn to left side; reports ocassional numbness PT-OP-F Manual Assessment Start: 12/18/18 14:57 Freq: Status: Active Protocol: Document 02/11/19 16:45 DCW (Rec: 02/11/19 17:35 DCW [id number]) Manual Assessments Soft Tissue Assessment Soft Tissue Mobility Assessment tenderness to palpation: B upper trapezius, levator, suboccipitals. Severe tone along scalenes bilaterally PT-OP-H Neuro Start: 12/18/18 14:57 Freq: Status: Active Protocol: Document 12/17/18 16:05 RCC (Rec: 12/18/18 17:47 RCC [email or web address]) Sensation Evaluation Comments Summary Comments WNL during examination but pt admits to all finger numbness occasionally L hand Deep Tendon Reflex & Clonus Assessment Deep Tendon Reflex Bilateral Brachioradialis Deep Tendon Reflex 2+ Normal Bilateral Tricep Deep Tendon Reflex 2+ Normal Bilateral Bicep Deep Tendon Reflex 2+ Normal PT-OP-J Posture/Palpation/Skin Start: 12/18/18 14:57 Freq: Status: Active Protocol: Document 12/17/18 16:05 RCC (Rec: 12/18/18 17:47 RCC [email or web address]) Posture Evaluation Comments Posture Comments mild SB L of the head on neck, forward head and rounded shoulders bilaterally PT-OP-K Range of Motion Start: 12/18/18 14:57 Freq: Status: Active Protocol: Document 02/11/19 16:45 DCW (Rec: 02/11/19 17:35 DCW [id number]) Cervical Spine Range of Motion Cervical Spine Active Degrees Testing Position Sitting Flexion 42 Extension 56 Rotation Left 53 Rotation Right 75 Lateral Flexion Left 34 Lateral Flexion Right 36 ROM Limitations Soft Tissue Tightness Bony Restriction Comments pain on L neck with flexion, extension, SB bilaterally, rotation L PT-OP-L Special Tests Start: 12/18/18 14:57 Freq: Status: Active Protocol: Document 12/17/18 16:05 RCC (Rec: 12/18/18 17:47 RCC [email or web address]) Special Tests Cervical Spine Special Tests Vertebral Artery Test Results negative Foraminal Compression Test Results positive L Spurling's Test Test Results positive L Shoulder Special Tests Empty Can Test Results negative B Lift-Off Rotator Cuff Test Results negative B Harrell Bruce Impingement Test Results positive L Neural Special Tests- Upper Body Median Nerve Tension Test Results positive L Comments negative R Ulnar Nerve Tension Test Results negative B Radial Nerve Tension Test Results positive L Comments negative R PT-OP-M Strength Start: 12/18/18 14:57 Freq: Status: Active Protocol: Document 12/17/18 16:05 RCC (Rec: 12/18/18 17:47 RCC [email or web address]) Shoulder Strength Shoulder Manual Muscle Testing Left Flexion 4+ Good+ Abduction (C5) 5 Normal External Rotation 4+ Good+ Internal Rotation 5 Normal Right Flexion 5 Normal Abduction (C5) 5 Normal External Rotation 5 Normal Internal Rotation 5 Normal Elbow/Forearm Strength Elbow and Forearm Manual Muscle Testing Right Flexion (C6) 5 Normal Extension (C7) 5 Normal Left Flexion (C6) 5 Normal Extension (C7) 5 Normal PT-OP-Q Treatments Start: 12/18/18 14:57 Freq: Status: Active Protocol: Document 03/30/19 17:17 EA (Rec: 03/30/19 17:24 EA [id number]) Manual Therapy Treatment Soft Tissue Mobilization 1 Body Location Bilateral scalene Mobilization Type Myofascial Release Rolling Strain/Counterstrain Sustained Pressure Trigger Point Release Intensity/Depth Moderate Body Position Supine Comments prone: to strat and end with effleurage Manual Traction Cervical Body Position Hooklying Reps/Duration 10 minutes Manual Techniques 1 Type PNF: Contract relax passive stretch toward left rotation Body Location Left and rigght side Body Position Sitting PT-OP-R Modalities Start: 12/18/18 14:57 Freq: Status: Active Protocol: Document 01/06/19 16:48 EA (Rec: 01/06/19 16:58 EA [id number]) Electric Stimulation Electric Stimulation Interferential Current (IFC) Body Location both traps Duration (Minutes) 15 Intensity 16 Patient Position Hooklying Combined With Heat/Cold Hot Pack PT-OP-T Assessment and Plan Start: 12/18/18 14:57 Freq: Status: Active Protocol: Document 03/30/19 17:17 EA (Rec: 03/30/19 17:24 EA [id number]) Physical Therapy Assessment Assessment Summary Assessment Noted full left rotation after PNF/manual technique. Denies any tingling/numbness with left turning and side bending . Physical Therapy Plan Next Visit Focus/Plan Next Note Type Treatment Note
--- NOTE | 2019-04-20 16:47 | PT.OTN ---
Current Diagnoses Cervicalgia (04/20/19) Physical Therapy Treatment Note PT-OP-A Visit Information Start: 12/18/18 14:57 Freq: Status: Active Protocol: Document 04/20/19 16:38 EA (Rec: 04/20/19 16:45 EA [id number]) Out-Patient Physical Therapy Visit Information Visit Information Visit Type Treatment Note Visit Start Time 16:00 Visit Stop Time 16:40 Visit Number 6 PT-OP-B Current Condition Start: 12/18/18 14:57 Freq: Status: Active Protocol: Document 12/17/18 16:05 RCC (Rec: 12/18/18 15:12 RCC [email or web address]) Current Condition History of Current Condition Current Complaints neck pain, pain radiating into the LUE History of Current Condition Pt is a 43 y/o female presenting to physical therapy with a c/o B neck pain, radiating down the LUE into the hand and fingers. Onset date unclear, but has been an ongoing issue for a while. 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 Pt is seeing a chiropractor intermittently with some results but no full resolution of symptoms. Pt states her whole hand can go numb at times, and also is exacerbated with sleep. Pt is R hand dominant. Pt notes that she is doing an exercise in the car to do a chin tuck which helps out quite a bit. She does Crossfit 3 days per week and would like to be able to tolerate this without neck issues. She is currently also being seen by our Women's Health phyiscal therapist, but is planning on d/c from that soon. Pt with occasional NELSON bilaterally in occipital and posterior parietal regions. Prior Treatments and Tests Radiograph cervical spine : diffuse facet arthorpathy and C5-6 disc degeneration with endplate spurring and sclerosis. Treatment Goals Patient/Caregiver Goals decrease pain, return to Crossfit without neck pain Prior Functional Status Baseline Function- Recreation/Hobbies Crossfit without issues Current Functional Impairments (Reported) Functional Limitations- Recreation/ unable to perform Crossfit Hobbies without increased neck and LUE pain. Personal Factors Other Personal Factors That May Effect HTN, cardiac history of [place] Therapy/Recovery PT-OP-C Subjective Start: 12/18/18 14:57 Freq: Status: Active Protocol: Document 04/20/19 16:38 EA (Rec: 04/20/19 16:45 EA [id number]) OP-PT Subjective Patient Comments Patient Comments ' I hate to tell you that I am feeling much better but I am . Pt reports she has been back to cross fit and feels neck is much better. Patient Reported Progress Improving PT-OP-F Manual Assessment Start: 12/18/18 14:57 Freq: Status: Active Protocol: Document 02/11/19 16:45 DCW (Rec: 02/11/19 17:35 DCW [id number]) Manual Assessments Soft Tissue Assessment Soft Tissue Mobility Assessment tenderness to palpation: B upper trapezius, levator, suboccipitals. Severe tone along scalenes bilaterally PT-OP-H Neuro Start: 12/18/18 14:57 Freq: Status: Active Protocol: Document 12/17/18 16:05 RCC (Rec: 12/18/18 17:47 RCC [email or web address]) Sensation Evaluation Comments Summary Comments WNL during examination but pt admits to all finger numbness occasionally L hand Deep Tendon Reflex & Clonus Assessment Deep Tendon Reflex Bilateral Brachioradialis Deep Tendon Reflex 2+ Normal Bilateral Tricep Deep Tendon Reflex 2+ Normal Bilateral Bicep Deep Tendon Reflex 2+ Normal PT-OP-J Posture/Palpation/Skin Start: 12/18/18 14:57 Freq: Status: Active Protocol: Document 12/17/18 16:05 RCC (Rec: 12/18/18 17:47 RCC [email or web address]) Posture Evaluation Comments Posture Comments mild SB L of the head on neck, forward head and rounded shoulders bilaterally PT-OP-K Range of Motion Start: 12/18/18 14:57 Freq: Status: Active Protocol: Document 02/11/19 16:45 DCW (Rec: 02/11/19 17:35 DCW [id number]) Cervical Spine Range of Motion Cervical Spine Active Degrees Testing Position Sitting Flexion 42 Extension 56 Rotation Left 53 Rotation Right 75 Lateral Flexion Left 34 Lateral Flexion Right 36 ROM Limitations Soft Tissue Tightness Bony Restriction Comments pain on L neck with flexion, extension, SB bilaterally, rotation L PT-OP-L Special Tests Start: 12/18/18 14:57 Freq: Status: Active Protocol: Document 12/17/18 16:05 RCC (Rec: 12/18/18 17:47 RCC [email or web address]) Special Tests Cervical Spine Special Tests Vertebral Artery Test Results negative Foraminal Compression Test Results positive L Spurling's Test Test Results positive L Shoulder Special Tests Empty Can Test Results negative B Lift-Off Rotator Cuff Test Results negative B Harrell Bruce Impingement Test Results positive L Neural Special Tests- Upper Body Median Nerve Tension Test Results positive L Comments negative R Ulnar Nerve Tension Test Results negative B Radial Nerve Tension Test Results positive L Comments negative R PT-OP-M Strength Start: 12/18/18 14:57 Freq: Status: Active Protocol: Document 12/17/18 16:05 RCC (Rec: 12/18/18 17:47 RCC [email or web address]) Shoulder Strength Shoulder Manual Muscle Testing Left Flexion 4+ Good+ Abduction (C5) 5 Normal External Rotation 4+ Good+ Internal Rotation 5 Normal Right Flexion 5 Normal Abduction (C5) 5 Normal External Rotation 5 Normal Internal Rotation 5 Normal Elbow/Forearm Strength Elbow and Forearm Manual Muscle Testing Right Flexion (C6) 5 Normal Extension (C7) 5 Normal Left Flexion (C6) 5 Normal Extension (C7) 5 Normal PT-OP-Q Treatments Start: 12/18/18 14:57 Freq: Status: Active Protocol: Document 04/20/19 16:38 EA (Rec: 04/20/19 16:45 EA [id number]) Therapeutic Exercises Supine Exercises 3 Supine Exercise Name Passive stretch: traps, scalenes, LS Side bilateral Reps/Minutes x 30 SH x 2 reps Standing Exercises 1 Standing Exercise Name AROM with manual resistance: All cervical planes Reps/Minutes x 10 reps each Manual Therapy Treatment Soft Tissue Mobilization 1 Body Location Bilateral scalene Mobilization Type Myofascial Release Rolling Strain/Counterstrain Sustained Pressure Trigger Point Release Intensity/Depth Moderate Body Position Supine Comments prone: to strat and end with effleurage Manual Techniques 1 Type PNF: Contract relax passive stretch toward left rotation Body Location Left and rigght side Body Position Sitting PT-OP-R Modalities Start: 12/18/18 14:57 Freq: Status: Active Protocol: Document 01/06/19 16:48 EA (Rec: 01/06/19 16:58 EA [id number]) Electric Stimulation Electric Stimulation Interferential Current (IFC) Body Location both traps Duration (Minutes) 15 Intensity 16 Patient Position Hooklying Combined With Heat/Cold Hot Pack PT-OP-T Assessment and Plan Start: 12/18/18 14:57 Freq: Status: Active Protocol: Document 04/20/19 16:38 EA (Rec: 04/20/19 16:45 EA [id number]) Physical Therapy Assessment Assessment Summary Assessment Improved range and tolerance to exercises with no discomfort except with mild tenderness over left LS. Overall patient is progressing very well. See patient after 2 wks for follow up and discharge to [facility]. Physical Therapy Plan Next Visit Focus/Plan Next Note Type Treatment Note Next Visit Plan Discharge
--- NOTE | 2019-05-20 16:51 | PT.OTN ---
Current Diagnoses Cervicalgia (05/20/19) Physical Therapy Treatment Note PT-OP-A Visit Information Start: 12/18/18 14:57 Freq: Status: Active Protocol: Document 05/20/19 16:44 EA (Rec: 05/20/19 16:51 EA [id number]) Out-Patient Physical Therapy Visit Information Visit Information Visit Type Treatment Note Visit Start Time 16:00 Visit Stop Time 16:40 Visit Number 7 PT-OP-B Current Condition Start: 12/18/18 14:57 Freq: Status: Active Protocol: Document 12/17/18 16:05 RCC (Rec: 12/18/18 15:12 RCC [email or web address]) Current Condition History of Current Condition Current Complaints neck pain, pain radiating into the LUE History of Current Condition Pt is a 43 y/o female presenting to physical therapy with a c/o B neck pain, radiating down the LUE into the hand and fingers. Onset date unclear, but has been an ongoing issue for a while. 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 Pt is seeing a chiropractor intermittently with some results but no full resolution of symptoms. Pt states her whole hand can go numb at times, and also is exacerbated with sleep. Pt is R hand dominant. Pt notes that she is doing an exercise in the car to do a chin tuck which helps out quite a bit. She does Crossfit 3 days per week and would like to be able to tolerate this without neck issues. She is currently also being seen by our Women's Health phyiscal therapist, but is planning on d/c from that soon. Pt with occasional NELSON bilaterally in occipital and posterior parietal regions. Prior Treatments and Tests Radiograph cervical spine : diffuse facet arthorpathy and C5-6 disc degeneration with endplate spurring and sclerosis. Treatment Goals Patient/Caregiver Goals decrease pain, return to Crossfit without neck pain Prior Functional Status Baseline Function- Recreation/Hobbies Crossfit without issues Current Functional Impairments (Reported) Functional Limitations- Recreation/ unable to perform Crossfit Hobbies without increased neck and LUE pain. Personal Factors Other Personal Factors That May Effect HTN, cardiac history of [place] Therapy/Recovery PT-OP-C Subjective Start: 12/18/18 14:57 Freq: Status: Active Protocol: Document 05/20/19 16:44 EA (Rec: 05/20/19 16:51 EA [id number]) OP-PT Subjective Patient Comments Patient Comments Pt reports went to her doctor due to ocassional left arm numbness; states underwent MRI and with results of C6-C7 OA with negative nerve compression. She was sent for bellingham injection but is not looking to have it. Patient asked for more HEP to prevent neck symptoms occurence. Patient stated I think i am ok now. Patient Reported Progress Improving PT-OP-F Manual Assessment Start: 12/18/18 14:57 Freq: Status: Active Protocol: Document 02/11/19 16:45 DCW (Rec: 02/11/19 17:35 DCW [id number]) Manual Assessments Soft Tissue Assessment Soft Tissue Mobility Assessment tenderness to palpation: B upper trapezius, levator, suboccipitals. Severe tone along scalenes bilaterally PT-OP-H Neuro Start: 12/18/18 14:57 Freq: Status: Active Protocol: Document 12/17/18 16:05 RCC (Rec: 12/18/18 17:47 RCC [email or web address]) Sensation Evaluation Comments Summary Comments WNL during examination but pt admits to all finger numbness occasionally L hand Deep Tendon Reflex & Clonus Assessment Deep Tendon Reflex Bilateral Brachioradialis Deep Tendon Reflex 2+ Normal Bilateral Tricep Deep Tendon Reflex 2+ Normal Bilateral Bicep Deep Tendon Reflex 2+ Normal PT-OP-J Posture/Palpation/Skin Start: 12/18/18 14:57 Freq: Status: Active Protocol: Document 12/17/18 16:05 RCC (Rec: 12/18/18 17:47 RCC [email or web address]) Posture Evaluation Comments Posture Comments mild SB L of the head on neck, forward head and rounded shoulders bilaterally PT-OP-K Range of Motion Start: 12/18/18 14:57 Freq: Status: Active Protocol: Document 02/11/19 16:45 DCW (Rec: 02/11/19 17:35 DCW [id number]) Cervical Spine Range of Motion Cervical Spine Active Degrees Testing Position Sitting Flexion 42 Extension 56 Rotation Left 53 Rotation Right 75 Lateral Flexion Left 34 Lateral Flexion Right 36 ROM Limitations Soft Tissue Tightness Bony Restriction Comments pain on L neck with flexion, extension, SB bilaterally, rotation L PT-OP-L Special Tests Start: 12/18/18 14:57 Freq: Status: Active Protocol: Document 12/17/18 16:05 RCC (Rec: 12/18/18 17:47 RCC [email or web address]) Special Tests Cervical Spine Special Tests Vertebral Artery Test Results negative Foraminal Compression Test Results positive L Spurling's Test Test Results positive L Shoulder Special Tests Empty Can Test Results negative B Lift-Off Rotator Cuff Test Results negative B Harrell Bruce Impingement Test Results positive L Neural Special Tests- Upper Body Median Nerve Tension Test Results positive L Comments negative R Ulnar Nerve Tension Test Results negative B Radial Nerve Tension Test Results positive L Comments negative R PT-OP-M Strength Start: 12/18/18 14:57 Freq: Status: Active Protocol: Document 12/17/18 16:05 RCC (Rec: 12/18/18 17:47 RCC [email or web address]) Shoulder Strength Shoulder Manual Muscle Testing Left Flexion 4+ Good+ Abduction (C5) 5 Normal External Rotation 4+ Good+ Internal Rotation 5 Normal Right Flexion 5 Normal Abduction (C5) 5 Normal External Rotation 5 Normal Internal Rotation 5 Normal Elbow/Forearm Strength Elbow and Forearm Manual Muscle Testing Right Flexion (C6) 5 Normal Extension (C7) 5 Normal Left Flexion (C6) 5 Normal Extension (C7) 5 Normal PT-OP-Q Treatments Start: 12/18/18 14:57 Freq: Status: Active Protocol: Document 05/20/19 16:44 EA (Rec: 05/20/19 16:51 EA [id number]) Therapeutic Exercises Supine Exercises 3 Supine Exercise Name Passive stretch: traps, scalenes, LS Side bilateral Reps/Minutes x 30 SH x 2 reps Comments HEP comp 2 Supine Exercise Name neck flexion Side bilateral Reps/Minutes 10 reps Comments HEP comp Standing Exercises 3 Standing Exercise Name Wall psoture Comments HEP comp 1 Standing Exercise Name AROM with manual resistance: All cervical planes Reps/Minutes x 10 reps each Comments HEP comp Self-Care/Home Management Treatment Education Patient Education Home Exercise Program Pain Management Posture PT-OP-R Modalities Start: 12/18/18 14:57 Freq: Status: Active Protocol: Document 01/06/19 16:48 EA (Rec: 01/06/19 16:58 EA [id number]) Electric Stimulation Electric Stimulation Interferential Current (IFC) Body Location both traps Duration (Minutes) 15 Intensity 16 Patient Position Hooklying Combined With Heat/Cold Hot Pack PT-OP-T Assessment and Plan Start: 12/18/18 14:57 Freq: Status: Active Protocol: Document 05/20/19 16:44 EA (Rec: 05/20/19 16:51 EA [id number]) Physical Therapy Assessment Assessment Summary Assessment Patient recommended with new HEP and given safety education . Patient is discharged today due to no more complaint. Physical Therapy Plan Discharge Physical Therapy Discharge Reasons Patient Request
--- NOTE | 2019-06-09 16:30 | PT.OPDS ---
Current Diagnoses Cervicalgia (05/20/19) Provider Visit Care Team Role Provider Type Micky Moon MD Attending Provider Physician Primary Care Provider Specialty: Family Practice Address: [address] [place] [address], [facility] Email: [email or web address] Visit Number Visit Number 7 Discharge Summary PT-OP-B Current Condition Start: 12/18/18 14:57 Freq: Status: Active Protocol: Document 12/17/18 16:05 RCC (Rec: 12/18/18 15:12 RCC [email or web address]) Current Condition History of Current Condition Current Complaints neck pain, pain radiating into the LUE History of Current Condition Pt is a 43 y/o female presenting to physical therapy with a c/o B neck pain, radiating down the LUE into the hand and fingers. Onset date unclear, but has been an ongoing issue for a while. 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 Pt is seeing a chiropractor intermittently with some results but no full resolution of symptoms. Pt states her whole hand can go numb at times, and also is exacerbated with sleep. Pt is R hand dominant. Pt notes that she is doing an exercise in the car to do a chin tuck which helps out quite a bit. She does Crossfit 3 days per week and would like to be able to tolerate this without neck issues. She is currently also being seen by our Women's Health phyiscal therapist, but is planning on d/c from that soon. Pt with occasional NELSON bilaterally in occipital and posterior parietal regions. Prior Treatments and Tests Radiograph cervical spine : diffuse facet arthorpathy and C5-6 disc degeneration with endplate spurring and sclerosis. Treatment Goals Patient/Caregiver Goals decrease pain, return to Crossfit without neck pain Prior Functional Status Baseline Function- Recreation/Hobbies Crossfit without issues Current Functional Impairments (Reported) Functional Limitations- Recreation/ unable to perform Crossfit Hobbies without increased neck and LUE pain. Personal Factors Other Personal Factors That May Effect HTN, cardiac history of [place] Therapy/Recovery PT-OP-C Subjective Start: 12/18/18 14:57 Freq: Status: Active Protocol: Document 05/20/19 16:44 EA (Rec: 05/20/19 16:51 EA [id number]) OP-PT Subjective Patient Comments Patient Comments Pt reports went to her doctor due to ocassional left arm numbness; states underwent MRI and with results of C6-C7 OA with negative nerve compression. She was sent for bellingham injection but is not looking to have it. Patient asked for more HEP to prevent neck symptoms occurence. Patient stated I think i am ok now. Patient Reported Progress Improving PT-OP-F Manual Assessment Start: 12/18/18 14:57 Freq: Status: Active Protocol: Document 02/11/19 16:45 DCW (Rec: 02/11/19 17:35 DCW [id number]) Manual Assessments Soft Tissue Assessment Soft Tissue Mobility Assessment tenderness to palpation: B upper trapezius, levator, suboccipitals. Severe tone along scalenes bilaterally PT-OP-H Neuro Start: 12/18/18 14:57 Freq: Status: Active Protocol: Document 12/17/18 16:05 RCC (Rec: 12/18/18 17:47 RCC [email or web address]) Sensation Evaluation Comments Summary Comments WNL during examination but pt admits to all finger numbness occasionally L hand Deep Tendon Reflex & Clonus Assessment Deep Tendon Reflex Bilateral Brachioradialis Deep Tendon Reflex 2+ Normal Bilateral Tricep Deep Tendon Reflex 2+ Normal Bilateral Bicep Deep Tendon Reflex 2+ Normal PT-OP-J Posture/Palpation/Skin Start: 12/18/18 14:57 Freq: Status: Active Protocol: Document 12/17/18 16:05 RCC (Rec: 12/18/18 17:47 RCC [email or web address]) Posture Evaluation Comments Posture Comments mild SB L of the head on neck, forward head and rounded shoulders bilaterally PT-OP-K Range of Motion Start: 12/18/18 14:57 Freq: Status: Active Protocol: Document 02/11/19 16:45 DCW (Rec: 02/11/19 17:35 DCW [id number]) Cervical Spine Range of Motion Cervical Spine Active Degrees Testing Position Sitting Flexion 42 Extension 56 Rotation Left 53 Rotation Right 75 Lateral Flexion Left 34 Lateral Flexion Right 36 ROM Limitations Soft Tissue Tightness Bony Restriction Comments pain on L neck with flexion, extension, SB bilaterally, rotation L PT-OP-L Special Tests Start: 12/18/18 14:57 Freq: Status: Active Protocol: Document 12/17/18 16:05 RCC (Rec: 12/18/18 17:47 RCC [email or web address]) Special Tests Cervical Spine Special Tests Vertebral Artery Test Results negative Foraminal Compression Test Results positive L Spurling's Test Test Results positive L Shoulder Special Tests Empty Can Test Results negative B Lift-Off Rotator Cuff Test Results negative B Harrell Bruce Impingement Test Results positive L Neural Special Tests- Upper Body Median Nerve Tension Test Results positive L Comments negative R Ulnar Nerve Tension Test Results negative B Radial Nerve Tension Test Results positive L Comments negative R PT-OP-M Strength Start: 12/18/18 14:57 Freq: Status: Active Protocol: Document 12/17/18 16:05 RCC (Rec: 12/18/18 17:47 RCC [email or web address]) Shoulder Strength Shoulder Manual Muscle Testing Left Flexion 4+ Good+ Abduction (C5) 5 Normal External Rotation 4+ Good+ Internal Rotation 5 Normal Right Flexion 5 Normal Abduction (C5) 5 Normal External Rotation 5 Normal Internal Rotation 5 Normal Elbow/Forearm Strength Elbow and Forearm Manual Muscle Testing Right Flexion (C6) 5 Normal Extension (C7) 5 Normal Left Flexion (C6) 5 Normal Extension (C7) 5 Normal PT-OP-T Assessment and Plan Start: 12/18/18 14:57 Freq: Status: Active Protocol: Document 05/20/19 16:44 EA (Rec: 05/20/19 16:51 EA [id number]) Physical Therapy Assessment Assessment Summary Assessment Patient recommended with new HEP and given safety education . Patient is dicharged today due to no more complaint. Physical Therapy Plan Discharge Physical Therapy Discharge Reasons Patient Request
== END 2019-07-17 09:12 | disposition home or self-care (01) ==
LOC: PHYS 16:00
PROVIDERS: PCP Family Medicine; Visit Provider Family Medicine
DX: M54.2 Cervicalgia (principal)
CPT/HCPCS: 97014; 97110; 97140; 97161; 97535; G0283

== ENCOUNTER → 2019-07-22 07:16 | Outpatient (CLI) | payer OTHER, SELFPAY ==
[2018-06-23 09:05] VITALS: BMI 29.0
[2019-07-22 08:34] LABS: Cholesterol 169 mg/dL (140-199); HDL Cholesterol 53 mg/dL (40-60); LDL Cholesterol Calculated 98 mg/dL (<100); Triglycerides 90 mg/dL (35-150)
== END ==
PROVIDERS: PCP Family Medicine; Visit Provider Family Medicine
DX: E78.2 Mixed hyperlipidemia (principal); I25.10 Atherosclerotic heart disease of native coronary artery without angina pectoris
CPT/HCPCS: 36415; 80061

== ENCOUNTER → 2019-11-13 11:55 | Outpatient (CLI) | payer OTHER, SELFPAY ==
[2018-06-23 09:05] VITALS: BMI 29.0
--- NOTE | 2019-11-13 | DI.MG.S_ITS ---
BILATERAL DIGITAL SCREENING MAMMOGRAM 3D/2D WITH CAD: 11/13/2019 CLINICAL: Routine screening. Family history of breast cancer. Comparison is made to exams dated: 11/12/2018 mammogram, 10/25/2017 mammogram, and 01/19/2016 mammogram - [facility]. There are scattered fibroglandular elements in both breasts. Current study was also evaluated with a Computer Aided Detection (CAD) system. No significant masses, calcifications, or other findings are seen in either breast. There has been no significant interval change. IMPRESSION: NEGATIVE There is no mammographic evidence of malignancy. A 1 year screening mammogram is recommended. This exam was interpreted at Station ID: [id number]. NOTE: For mammograms, a report in lay terms will be sent to the patient. Approximately 15% of breast malignancies will not be visualized mammographically. In the management of a palpable breast mass, a negative mammogram must not discourage biopsy of a clinically suspicious lesion. Electronically Signed By: Shiv arroyo/jhonny:11/13/2019 12:32:21 letter sent: Normal Exam ACR BI-RADS Category 1: Negative 3341F
== END ==
PROVIDERS: PCP Family Medicine; Visit Provider Family Medicine
DX: Z12.31 Encounter for screening mammogram for malignant neoplasm of breast (principal); Z80.3 Family history of malignant neoplasm of breast
CPT/HCPCS: 77063; 77067

== ENCOUNTER → 2020-07-22 10:19 | Outpatient (CLI) | payer OTHER, SELFPAY ==
[2018-06-23 09:05] VITALS: BMI 29.0
[2020-07-22 11:32] LABS: Add Manual Diff / Slide Review NO; Basophils Absolute Auto 0 /uL (0-100); Basophils Percent Auto 1.2 % (0-2); Eosinophils Absolute Auto 200 /uL (0-450); Eosinophils Percent Auto 4.2 % (2-4); Hematocrit 39.3 % (36-46); Hemoglobin 13.1 g/dL (12.0-16.0); Lymphocytes Absolute Auto 1300 /uL (1100-4500); Lymphocytes Percent Auto 32.2 % (25-40); Mean Corpuscular HGB Conc 33.4 % (30-36); Mean Corpuscular Hemoglobin 32.2 PG (26-34); Mean Corpuscular Volume 96.5 fL (80-100); Monocytes Absolute Auto 400 /uL (0-900); Monocytes Percent Auto 9.9 % (3-14); Neutrophils Absolute Auto 2200 /uL (1500-7000); Neutrophils Percent Auto 52.5 % (50-75); Platelet Count 189 X10^3/uL (150-400); Red Blood Cell Count 4.08 X10^6/uL (4.0-5.2); Red Cell Distribution Width 12.4 % (11.6-14.8); White Blood Cell Count 4.2 X10^3/uL (4.5-11.0)
[2020-07-22 12:05] LABS: Alanine Aminotransferase 62 IU/L (<35); Albumin 4.3 g/dL (3.5-5.0); Albumin Globulin Ratio 1.5 (1.0-2.8); Alkaline Phosphatase 73 U/L (38-126); Aspartate Aminotransferase 61 IU/L (14-36); BUN Creatinine Ratio 19.1 (6-22); Bilirubin Total 0.8 mg/dL (0.2-1.3); Blood Urea Nitrogen 18 mg/dL (7-17); Calcium 9.2 mg/dL (8.4-10.2); Carbon Dioxide 28 mmol/L (22-32); Chloride 104 mmol/L (98-107); Cholesterol 172 mg/dL (140-199); Estimated Glomerular Filt Rate > 60.0 mL/min (>60); Globulin 2.8 g/dL (1.7-4.1); Glucose 76 mg/dL (70-100); HDL Cholesterol 68 mg/dL (40-60); HEMOLYSIS < 15 (0-50); LDL Cholesterol Calculated 89 mg/dL (<100); Potassium 4.6 mmol/L (3.4-5.1); Sodium 136 mmol/L (137-145); Total Protein 7.1 g/dL (6.3-8.2); Triglycerides 76 mg/dL (35-150)
[2020-07-24 13:41] LABS: ANA Screen, IFA Positive (.)
== END ==
PROVIDERS: PCP Family Medicine; Referring Provider Family Medicine; Visit Provider Family Medicine
DX: E78.2 Mixed hyperlipidemia (principal); I10 Essential (primary) hypertension; M32.9 Systemic lupus erythematosus, unspecified; Z95.5 Presence of coronary angioplasty implant and graft
CPT/HCPCS: 36415; 80053; 80061; 85025; 86038

== ENCOUNTER → 2020-11-24 17:36 | Outpatient (CLI) | payer OTHER, SELFPAY ==
[2018-06-23 09:05] VITALS: BMI 29.0
--- NOTE | 2020-11-24 | DI.MG.S_ITS ---
BILATERAL DIGITAL SCREENING MAMMOGRAM 3D/2D WITH CAD: 11/24/2020 CLINICAL: Routine screening. Family history of breast cancer. Comparison is made to exams dated: 11/13/2019 mammogram, 11/12/2018 mammogram, and 10/25/2017 mammogram - [facility]. There are scattered fibroglandular elements in both breasts. Current study was also evaluated with a Computer Aided Detection (CAD) system. No significant masses, calcifications, or other findings are seen in either breast. There has been no significant interval change. IMPRESSION: NEGATIVE There is no mammographic evidence of malignancy. A 1 year screening mammogram is recommended. This exam was interpreted at Station ID: [id number]. NOTE: For mammograms, a report in lay terms will be sent to the patient. Approximately 15% of breast malignancies will not be visualized mammographically. In the management of a palpable breast mass, a negative mammogram must not discourage biopsy of a clinically suspicious lesion. Electronically Signed By: Bernabe vicente/jhonny:11/25/2020 08:17:58 letter sent: Normal Exam ACR BI-RADS Category 1: Negative 3341F
== END ==
PROVIDERS: PCP Family Medicine; Referring Provider Family Medicine; Visit Provider Family Medicine
DX: Z12.31 Encounter for screening mammogram for malignant neoplasm of breast (principal); Z80.3 Family history of malignant neoplasm of breast
CPT/HCPCS: 77063; 77067

== ENCOUNTER → 2021-01-25 15:00 | Outpatient (CLI) | payer OTHER, SELFPAY ==
[2018-06-23 09:05] VITALS: BMI 29.0
[2021-01-25] MEDS: COVID-19 VACC, Ad26(JANSSEN)/PF 0.5 ML IM (15:07)
== END ==
PROVIDERS: PCP Family Medicine; Visit Provider Internal Medicine
DX: Z23 Encounter for immunization (principal)
CPT/HCPCS: 0031A; 91303

== ENCOUNTER → 2021-02-03 09:03 | Outpatient (CLI) | payer OTHER, SELFPAY ==
[2018-06-23 09:05] VITALS: BMI 29.0
[2021-02-03 10:04] LABS: Add Manual Diff / Slide Review NO; Basophils Absolute Auto 100 /uL (0-100); Basophils Percent Auto 1.2 % (0-2); Eosinophils Absolute Auto 200 /uL (0-450); Eosinophils Percent Auto 3.7 % (2-4); Hematocrit 39.5 % (36-46); Hemoglobin 13.7 g/dL (12.0-16.0); Lymphocytes Absolute Auto 1600 /uL (1100-4500); Lymphocytes Percent Auto 33.2 % (25-40); Mean Corpuscular HGB Conc 34.8 % (30-36); Mean Corpuscular Hemoglobin 32.7 PG (26-34); Mean Corpuscular Volume 94.1 fL (80-100); Monocytes Absolute Auto 400 /uL (0-900); Monocytes Percent Auto 9.3 % (3-14); Neutrophils Absolute Auto 2500 /uL (1500-7000); Neutrophils Percent Auto 52.6 % (50-75); Platelet Count 196 X10^3/uL (150-400); Red Cell Distribution Width 11.8 % (11.6-14.8); White Blood Cell Count 4.7 X10^3/uL (4.5-11.0)
[2021-02-03 10:15] LABS: Alanine Aminotransferase 26 IU/L (<35); Albumin 4.5 g/dL (3.5-5.0); Albumin Globulin Ratio 1.7 (1.0-2.8); Alkaline Phosphatase 69 U/L (38-126); Aspartate Aminotransferase 36 IU/L (14-36); Bilirubin Total 0.7 mg/dL (0.2-1.3); Blood Urea Nitrogen 15 mg/dL (7-17); Calcium 9.5 mg/dL (8.4-10.2); Carbon Dioxide 27 mmol/L (22-32); Chloride 101 mmol/L (98-107); Cholesterol 199 mg/dL (140-199); Estimated Glomerular Filt Rate > 60.0 mL/min (>60); Globulin 2.7 g/dL (1.7-4.1); Glucose 84 mg/dL (70-100); HDL Cholesterol 67 mg/dL (40-60); HEMOLYSIS < 15 (0-50); LDL Cholesterol Calculated 112 mg/dL (<100); Potassium 4.7 mmol/L (3.4-5.1); Sodium 137 mmol/L (137-145); Total Protein 7.2 g/dL (6.3-8.2); Triglycerides 98 mg/dL (35-150)
== END ==
PROVIDERS: PCP Family Medicine; Referring Provider Family Medicine; Visit Provider Family Medicine
DX: E78.2 Mixed hyperlipidemia (principal); I10 Essential (primary) hypertension; Z95.5 Presence of coronary angioplasty implant and graft
CPT/HCPCS: 36415; 80053; 80061; 83001; 83002; 84443; 85025

== ENCOUNTER → 2021-11-25 09:47 | Outpatient (CLI) | payer OTHER, SELFPAY ==
[2021-03-22 16:41] VITALS: BMI 29.0
--- NOTE | 2021-11-25 | DI.MG.S_ITS ---
BILATERAL DIGITAL SCREENING MAMMOGRAM 3D/2D WITH CAD: 11/25/2021 CLINICAL: Routine screening. Family history of breast cancer. Comparison is made to exams dated: 11/24/2020 mammogram, 11/13/2019 mammogram, and 11/12/2018 mammogram - [facility]. There are scattered fibroglandular elements in both breasts. Current study was also evaluated with a Computer Aided Detection (CAD) system. No significant masses, calcifications, or other findings are seen in either breast. There has been no significant interval change. IMPRESSION: NEGATIVE There is no mammographic evidence of malignancy. A 1 year screening mammogram is recommended. This exam was interpreted at Station ID: [id number]. NOTE: For mammograms, a report in lay terms will be sent to the patient. Approximately 15% of breast malignancies will not be visualized mammographically. In the management of a palpable breast mass, a negative mammogram must not discourage biopsy of a clinically suspicious lesion. Electronically Signed By: Shiv arroyo/jhonny:11/26/2021 23:54:58 letter sent: Normal Exam ACR BI-RADS Category 1: Negative 3341F
== END ==
PROVIDERS: PCP Family Medicine; Referring Provider Family Medicine; Visit Provider Family Medicine
DX: Z12.31 Encounter for screening mammogram for malignant neoplasm of breast (principal); Z80.3 Family history of malignant neoplasm of breast
CPT/HCPCS: 77063; 77067

== ENCOUNTER → 2022-02-22 09:02 | Outpatient (CLI) | payer OTHER, SELFPAY ==
[2021-03-22 16:41] VITALS: BMI 29.0
[2022-02-22 11:29] LABS: COVID-19 CEPHEID PCR (VTM/NP) Negative (Negative)
== END ==
PROVIDERS: PCP Family Medicine; Visit Provider Family Medicine Sleep Medicine
DX: Z20.822 Contact with and (suspected) exposure to COVID-19 (principal)
CPT/HCPCS: C9803; U0003; U0005

== ENCOUNTER → 2022-03-08 09:15 | Outpatient (CLI) | payer OTHER, SELFPAY ==
[2021-03-22 16:41] VITALS: BMI 29.0
[2022-03-08 11:21] LABS: COVID-19 CEPHEID PCR (VTM/NP) Negative (Negative)
== END ==
PROVIDERS: PCP Family Medicine; Visit Provider Family Medicine Sleep Medicine
DX: Z20.822 Contact with and (suspected) exposure to COVID-19 (principal)
CPT/HCPCS: C9803; U0003; U0005

== ENCOUNTER → 2022-04-11 07:36 | Outpatient (CLI) | payer OTHER, SELFPAY ==
[2021-03-22 16:41] VITALS: BMI 29.0
[2022-04-11 08:22] LABS: Add Manual Diff / Slide Review NO; Basophils Absolute Auto 0 /uL (0-100); Basophils Percent Auto 1.1 % (0-2); Eosinophils Absolute Auto 200 /uL (0-450); Eosinophils Percent Auto 4.8 % (2-4); Hematocrit 37.5 % (36-46); Hemoglobin 12.9 g/dL (12.0-16.0); Lymphocytes Absolute Auto 1400 /uL (1100-4500); Lymphocytes Percent Auto 35.2 % (25-40); Mean Corpuscular HGB Conc 34.5 % (30-36); Mean Corpuscular Hemoglobin 32.3 PG (26-34); Mean Corpuscular Volume 93.7 fL (80-100); Monocytes Absolute Auto 400 /uL (0-900); Monocytes Percent Auto 9.7 % (3-14); Neutrophils Absolute Auto 1900 /uL (1500-7000); Neutrophils Percent Auto 49.2 % (50-75); Platelet Count 193 X10^3/uL (150-400); Red Cell Distribution Width 12.5 % (11.6-14.8); White Blood Cell Count 3.8 X10^3/uL (4.5-11.0)
[2022-04-11 09:07] LABS: Alanine Aminotransferase 21 IU/L (<35); Albumin 4.2 g/dL (3.5-5.0); Albumin Globulin Ratio 1.7 (1.0-2.8); Alkaline Phosphatase 73 U/L (38-126); Aspartate Aminotransferase 32 IU/L (14-36); BUN Creatinine Ratio 11.7 (6-22); Bilirubin Total 0.8 mg/dL (0.2-1.3); Blood Urea Nitrogen 12 mg/dL (7-17); Calcium 9.2 mg/dL (8.4-10.2); Carbon Dioxide 29 mmol/L (22-32); Chloride 105 mmol/L (98-107); Cholesterol 200 mg/dL (140-199); Estimated Glomerular Filt Rate > 60 mL/min (>60); Globulin 2.5 g/dL (1.7-4.1); Glucose 89 mg/dL (70-100); HDL Cholesterol 70 mg/dL (40-60); HEMOLYSIS < 15 (0-50); LDL Cholesterol Calculated 111 mg/dL (<100); Potassium 4.6 mmol/L (3.4-5.1); Sodium 139 mmol/L (137-145); Total Protein 6.7 g/dL (6.3-8.2); Triglycerides 97 mg/dL (35-150)
[2022-04-11 09:32] LABS: TSH w/ Reflex to FT4 2.13 uIU/mL (0.47-4.68)
== END ==
PROVIDERS: PCP Family Medicine; Referring Provider Family Medicine; Visit Provider Family Medicine
DX: E78.2 Mixed hyperlipidemia (principal); I10 Essential (primary) hypertension; I25.10 Atherosclerotic heart disease of native coronary artery without angina pectoris
CPT/HCPCS: 36415; 80053; 80061; 84443; 85025

== ENCOUNTER → 2022-09-12 16:36 | Outpatient (CLI) | payer OTHER, BC, SELFPAY ==
[2021-03-22 16:41] VITALS: BMI 29.0
[2022-09-12 17:27] LABS: HEMOLYSIS < 15 (0-50); Iron 115 ug/dL (37-170)
[2022-09-12 17:33] LABS: Hematocrit 38.6 % (36-46); Hemoglobin 13.2 g/dL (12.0-16.0)
[2022-09-12 17:40] LABS: Percent Iron Saturation 29 % (15-50); Total Iron Binding Capacity 392 ug/dL (265-497); Transferrin 289 mg/dL (206-381)
[2022-09-12 17:45] LABS: Free T3, Triiodothyronine Free 3.69 pg/mL (2.77-5.27); Free T4, Direct Thyroxine 1.24 ng/dL (0.78-2.19)
[2022-09-12 17:59] LABS: Thyroid Stimulating Hormone 1.48 uIU/mL (0.47-4.68)
[2022-09-12 18:19] LABS: Vitamin B12 786 pg/mL (239-931)
[2022-09-15 16:59] LABS: ANA Screen, IFA Positive (.)
[2022-09-19 21:51] LABS: Estrogen 70 pg/mL (.)
== END ==
PROVIDERS: PCP Family Medicine; Referring Provider Physician Assistant; Visit Provider Physician Assistant
DX: L65.9 Nonscarring hair loss, unspecified (principal); R53.83 Other fatigue; R76.8 Other specified abnormal immunological findings in serum
CPT/HCPCS: 36415; 82607; 82672; 83540; 83550; 84439; 84443; 84481; 85014; 85018; 86038

== ENCOUNTER → 2022-09-18 16:15 | Outpatient (CLI) | payer OTHER, BC, SELFPAY ==
[2021-03-22 16:41] VITALS: BMI 29.0
[2022-09-18 16:56] LABS: C-Reactive Protein Quant < 0.5 mg/dL (<1.0)
[2022-09-18 17:18] LABS: Rheumatoid Factor < 8.6 IU/mL (<12.0)
[2022-09-18 18:14] LABS: Erythrocyte Sedimentation Rate 4 MM/HR (0-20)
[2022-09-20 00:08] LABS: Hepatitis B Core Antibody Negative (Negative)
[2022-09-20 17:15] LABS: Hepatitis B Surface Antigen NEGATIVE s/c (NEGATIVE)
[2022-09-20 20:37] LABS: CCP Antibodies IgG/IgA 4 units (0-19)
== END ==
PROVIDERS: PCP Family Medicine; Referring Provider Physician Assistant; Visit Provider Physician Assistant
DX: I25.10 Atherosclerotic heart disease of native coronary artery without angina pectoris (principal); L65.9 Nonscarring hair loss, unspecified; R53.83 Other fatigue; R76.8 Other specified abnormal immunological findings in serum
CPT/HCPCS: 36415; 85651; 86140; 86200; 86430; 86704; 87340; 87522

== ENCOUNTER → 2022-11-15 14:45 | Outpatient (CLI) | payer OTHER, BC, SELFPAY ==
[2021-03-22 16:41] VITALS: BMI 29.0
[2022-11-15 15:56] LABS: Follicle Stimulating Hormone 32.8 mIU/mL
[2022-11-15 15:57] LABS: Free T3, Triiodothyronine Free 3.25 pg/mL (2.77-5.27)
[2022-11-15 16:11] LABS: Thyroid Stimulating Hormone 1.24 uIU/mL (0.47-4.68)
[2022-11-16 07:03] LABS: Thyroid Peroxidase Antibodies <9 IU/mL (0-34)
== END ==
PROVIDERS: PCP Family Medicine; Referring Provider Naturopath; Visit Provider Naturopath
DX: E89.41 Symptomatic postprocedural ovarian failure (principal); R53.83 Other fatigue
CPT/HCPCS: 36415; 83001; 83002; 84439; 84443; 84481; 86376

== ENCOUNTER → 2023-03-05 07:12 | Outpatient (CLI) | payer OTHER, BC, SELFPAY ==
[2021-03-22 16:41] VITALS: BMI 29.0
[2023-03-05 09:18] LABS: Add Manual Diff / Slide Review NO; Basophils Absolute Auto 0 /uL (0-100); Eosinophils Absolute Auto 100 /uL (0-450); Eosinophils Percent Auto 2.9 % (2-4); Hematocrit 39.5 % (36-46); Hemoglobin 13.3 g/dL (12.0-16.0); Lymphocytes Absolute Auto 1100 /uL (1100-4500); Lymphocytes Percent Auto 25.8 % (25-40); Mean Corpuscular HGB Conc 33.7 % (30-36); Mean Corpuscular Hemoglobin 32.2 PG (26-34); Mean Corpuscular Volume 95.6 fL (80-100); Monocytes Absolute Auto 400 /uL (0-900); Monocytes Percent Auto 9.5 % (3-14); Neutrophils Absolute Auto 2600 /uL (1500-7000); Neutrophils Percent Auto 60.8 % (50-75); Platelet Count 207 X10^3/uL (150-400); Red Blood Cell Count 4.14 X10^6/uL (4.0-5.2); Red Cell Distribution Width 13.8 % (11.6-14.8); White Blood Cell Count 4.2 X10^3/uL (4.5-11.0)
[2023-03-05 09:58] LABS: Alanine Aminotransferase 27 IU/L (<35); Albumin 4.2 g/dL (3.5-5.0); Albumin Globulin Ratio 1.4 (1.0-2.8); Alkaline Phosphatase 75 U/L (38-126); Aspartate Aminotransferase 35 IU/L (14-36); BUN Creatinine Ratio 21.5 (6-22); Bilirubin Total 0.8 mg/dL (0.2-1.3); Blood Urea Nitrogen 20 mg/dL (7-17); Calcium 9.2 mg/dL (8.4-10.2); Carbon Dioxide 28 mmol/L (22-32); Chloride 104 mmol/L (98-107); Cholesterol 193 mg/dL (140-199); Estimated Glomerular Filt Rate > 60 mL/min (>60); Glucose 80 mg/dL (70-100); HDL Cholesterol 64 mg/dL (40-60); HEMOLYSIS < 15 (0-50); LDL Cholesterol Calculated 112 mg/dL (<100); Potassium 3.8 mmol/L (3.4-5.1); Sodium 139 mmol/L (137-145); Total Protein 7.2 g/dL (6.3-8.2); Triglycerides 84 mg/dL (35-150)
[2023-03-05 10:28] LABS: TSH w/ Reflex to FT4 1.26 uIU/mL (0.47-4.68)
== END ==
PROVIDERS: PCP Family Medicine; Referring Provider Family Medicine; Visit Provider Family Medicine
DX: E78.2 Mixed hyperlipidemia (principal); I10 Essential (primary) hypertension
CPT/HCPCS: 36415; 80053; 80061; 84443; 85025

== ENCOUNTER → 2023-03-23 11:15 | Outpatient (CLI) | payer OTHER, SELFPAY ==
[2021-03-22 16:41] VITALS: BMI 29.0
--- NOTE | 2023-03-23 11:16 | DI.MG.S_ITS ---
BILATERAL DIGITAL SCREENING MAMMOGRAM 3D/2D WITH CAD: 03/23/2023 CLINICAL: Routine screening. Family history of breast cancer. Comparison is made to exams dated: 11/25/2021 mammogram, 11/24/2020 mammogram, and 11/13/2019 mammogram - [facility]. There are scattered areas of fibroglandular density in both breasts (category b / 25%-50% glandular tissue). Current study was also evaluated with a Computer Aided Detection (CAD) system. No significant masses, calcifications, or other findings are seen in either breast. There has been no significant interval change. IMPRESSION: NEGATIVE There is no mammographic evidence of malignancy. A 1 year screening mammogram is recommended. Based on the Tyrer Cuzick model (a risk assessment model) the patient's lifetime risk is 12.9% and her 10 year risk is 2.9%. According to the ACR, ACS, and NCCN guidelines, an annual breast MRI exam along with mammogram is recommended if the patient's lifetime risk is 20% or greater. This exam was interpreted at Station ID: [id number]. NOTE: For mammograms, a report in lay terms will be sent to the patient. Approximately 15% of breast malignancies will not be visualized mammographically. In the management of a palpable breast mass, a negative mammogram must not discourage biopsy of a clinically suspicious lesion. Electronically Signed By: Shiv arroyo/jhonny:03/25/2023 08:45:55 letter sent: Normal Exam ACR BI-RADS Category 1: Negative 3341F
== END ==
PROVIDERS: PCP Family Medicine; Referring Provider Family Medicine; Visit Provider Family Medicine
DX: Z12.31 Encounter for screening mammogram for malignant neoplasm of breast (principal); Z80.3 Family history of malignant neoplasm of breast
CPT/HCPCS: 77063; 77067

== ENCOUNTER → 2023-04-09 16:00 | Outpatient (CLI) | payer OTHER, BC, SELFPAY ==
[2021-03-22 16:41] VITALS: BMI 29.0
--- NOTE | 2023-04-09 16:02 | DI.RAD.S_ITS ---
PROCEDURE: XR FOOT LT MIN 3V INDICATIONS: Pain metatarsal area TECHNIQUE: 3 views of the foot were acquired. COMPARISON: None. FINDINGS: Bones: No fractures or dislocations. No suspicious bony lesions. Soft tissues: No tibiotalar joint effusion. Achilles tendon appears normal. Calcaneal spur is present. IMPRESSION: No visualized acute fracture or dislocation. However, if clinical concern and/or pain persist, short interval imaging followup in 7-10 days is recommended, as occult injury cannot be definitively excluded. Dictated by: Rosana Cantu M.D. on 04/09/2023 at 17:24 Approved by: Rosana Cantu M.D. on 04/09/2023 at 17:25
== END ==
PROVIDERS: PCP Family Medicine; Referring Provider Physician Assistant; Visit Provider Physician Assistant
DX: M79.672 Pain in left foot (principal)
CPT/HCPCS: 73630

== ENCOUNTER 2023-05-23 07:30 | Day surgery (SDC) | payer OTHER, BC, SELFPAY ==
[2021-03-22 16:41] VITALS: BMI 29.0
[2023-05-23] MEDS: LACTATED RINGERS 1,000 ML 42 ML IV (07:39)
[2023-05-23 07:46] VITALS: BP 138/75; PULSE 68; RESP 16; TEMP 36.3; O2SAT 97; BMI 26.6
--- NOTE | 2023-05-23 08:23 | PM.HP.1 ---
History of Present Illness History of Present Illness Date Patient Seen: 05/23/23 Time Patient Seen: 08:23 Chief complaint: Screening Colonoscopy Narrative: Ashley is a 48-year-old woman who is here for colonoscopy. She has never had 1 before. Her younger sister was recently diagnosed with colon cancer. [facility] Medical History (Updated 05/23/23 @ 08:24 by Home Washington MD) Aortic stenosis (2013) Cystocele Dyslipidemia Heart murmur, systolic History of cardiac murmur Hypertension (2013) Ischemic cardiomyopathy Lupus Lupus (systemic lupus erythematosus) Malar rash Myocardial infarction Positive GENA (antinuclear antibody) Rosacea Uterine prolapse Surgical History (Updated 03/11/23 @ 12:20 by Micky Moon MD) Anesthesia H/O hernia repair History of abdominoplasty (2005) History of angioplasty (09/2014) Status post LASIK surgery Family History Father Age: 69 Esophageal cancer Hypertension High cholesterol Loud snoring Mother Age: 68 Hypertension Insomnia Restless leg Anxiety Family/Other Insomnia Restless leg Heart disease Alcohol abuse Family/Other Loud snoring Alcohol abuse Social History marital status: household members: spouse, family and children Smoking Status: Never smoker alcohol intake: current substance use type: does not use Meds Home Medications and Allergies Home Medications Medication Instructions Recorded Confirmed Type aspirin 81 mg tablet,delayed 81 mg PO DAILY 12/07/20 05/23/23 History release atorvastatin 40 mg tablet 40 mg PO BEDTIME #90 tabs 03/22/23 05/23/23 Rx losartan 25 mg tablet 25 mg PO DAILY #90 tabs 05/14/23 05/23/23 Rx zolpidem 10 mg tablet (Ambien) 5 mg PO BEDTIME PRN insomnia #20 05/15/23 05/23/23 Rx tabs doxycycline monohydrate 40 mg 40 mg PO Q3D 05/23/23 05/23/23 History capsule,immediate - delay release (Oracea) Allergies Allergy/AdvReac Type Severity Reaction Status Date / Time No Known Drug Allergies Allergy Verified 05/23/23 07:42 Exam Vital Signs (past 8 hours): - 05/23/23 07:46 Temperature 97.4 F L Pulse Rate 68 Respiratory Rate 16 Blood Pressure 138/75 Pulse Oximetry 97 Oxygen Delivery Method Room Air Oxygen Delivery Method Room Air Const General: healthy appearing Assessment & Plan Assessment and plan (1) Family history of colon cancer: Status: Acute Plan We reviewed the risks and benefits of colonoscopy for colon cancer screening and she would like to proceed.
[2023-05-23 09:03] VITALS: BP 145/91; PULSE 67; RESP 18; TEMP 36.3; O2SAT 99
--- NOTE | 2023-05-23 09:03 | PM.OP.COLON ---
Operative Date/Time/Diagnoses Date of procedure: 05/23/23 Time of procedure: 09:03 Pre-op diagnosis: Family history of colon cancer Post-op diagnosis: same Procedure & Clinicians Study performed: Colonoscopy Same procedure as scheduled: Yes Surgeon: Home Washington Procedure Notes Procedure in detail: Surgeon: Home Washington MD Anesthesia: Luis Gerard CRNA Procedure: The patient was brought to the endoscopy suite, placed in left lateral decubitus position. The patient was connected to monitoring devices. A time-out was performed. Sedation was administered. Once the patient was adequately sedated, a digital rectal exam was performed and was normal. The scope was then inserted and advanced to the cecum where the appendiceal orifice was identified and photographed. The scope was then slowly withdrawn over greater than 6 minutes. The mucosa was thoroughly inspected. No abnormalities were found. The scope was retroflexed in the rectum. No abnormalities were seen. The scope was straightened and removed. The patient was awakened and brought to recovery. Scope withdrawal time: 10 minutes Sedation time: 18 minutes EBL: 0 Findings: Normal colon Post-procedure Recommendations: Colonoscopy in 5 years Disposition: PACU
[2023-05-23 09:09] VITALS: BP 147/90; PULSE 64; RESP 11; O2SAT 99
[2023-05-23 09:11] VITALS: BP 148/93; PULSE 60; RESP 10; TEMP 36.3; O2SAT 98
== END 2023-05-23 09:18 | disposition home or self-care (01) ==
PROVIDERS: PCP Family Medicine; Referring Provider Surgery; Visit Provider Surgery
PROC: 0DJD8ZZ Inspection of Lower Intestinal Tract, Via Natural or Artificial Opening Endoscopic (ICD-10-PCS; CPT 45378; principal; 2023-05-23 08:30)
DX: Z12.11 Encounter for screening for malignant neoplasm of colon (principal); Z80.0 Family history of malignant neoplasm of digestive organs; I10 Essential (primary) hypertension; E78.5 Hyperlipidemia, unspecified
CPT/HCPCS: 45378; J2704

== ENCOUNTER → 2023-07-06 15:44 | Outpatient (CLI) | payer OTHER, BC, SELFPAY ==
[2021-03-22 16:41] VITALS: BMI 29.0
--- NOTE | 2023-07-06 15:45 | DI.MRI.S_ITS ---
PROCEDURE: MRFOOT LT WO CON INDICATIONS: Persistent L foot pain > 6 weeks TECHNIQUE: Noncontrast sagittal T1 spin echo and T2 fast spin echo with fat saturation, long-axis T1 spin echo and T2 fast spin echo with fat saturation, short-axis T1 spin echo and T2 fast spin echo with fat saturation through the forefoot. COMPARISON: [facility], CR, XR FOOT LT MIN 3V, 04/09/2023, 15:59. FINDINGS: Image quality: Excellent. Bones and joints: No bone marrow contusions or metatarsal stress fractures. The sesamoid bones appear in expected positions, without internal edema. No metatarsophalangeal joint degeneration. No intraosseous lesions. Soft tissues: The visualized plantar foot muscles demonstrate normal signal and bulk. Visualized flexor and extensor tendons appear intact, without tenosynovitis. The distal insertions of the peroneus brevis and longus tendons appear intact. The principal Lisfranc ligament appears intact. Small amount of fluid is noted within soft tissue between 2nd and 3rd metatarsal heads and 3rd and 4th metatarsal heads. Possible 6 millimeter ganglion cyst over plantar aspect of 3rd metatarsal base is seen. IMPRESSION: 1. Fluid within 2nd and 3rd interspace concerning for intermetatarsal bursitis. Possible 6 millimeter ganglion cyst over plantar aspect of 3rd metatarsal base. 2. Tendons and ligaments of midfoot and forefoot are grossly intact. 3. No marrow edema. No fracture or dislocation. No metatarsal stress fracture. Dictated by: Charles Nielsen M.D. on 07/08/2023 at 11:11 Approved by: Charles Nielsen M.D. on 07/08/2023 at 11:24
== END ==
PROVIDERS: PCP Family Medicine; Referring Provider Physician Assistant; Visit Provider Physician Assistant
DX: M79.672 Pain in left foot (principal)
CPT/HCPCS: 73718

== ENCOUNTER → 2024-03-31 07:14 | Outpatient (CLI) | payer OTHER, BC, SELFPAY ==
[2021-03-22 16:41] VITALS: BMI 29.0
[2024-03-31 08:35] LABS: Add Manual Diff / Slide Review NO; Basophils Absolute Auto 0 /uL (0-100); Eosinophils Absolute Auto 200 /uL (0-450); Eosinophils Percent Auto 5.6 % (2-4); Hematocrit 37.8 % (36-46); Hemoglobin 12.9 g/dL (12.0-16.0); Lymphocytes Absolute Auto 1500 /uL (1100-4500); Lymphocytes Percent Auto 35.6 % (25-40); Mean Corpuscular HGB Conc 34.2 % (30-36); Mean Corpuscular Volume 93.7 fL (80-100); Monocytes Absolute Auto 400 /uL (0-900); Monocytes Percent Auto 10.1 % (3-14); Neutrophils Absolute Auto 2000 /uL (1500-7000); Neutrophils Percent Auto 47.7 % (50-75); Platelet Count 192 X10^3/uL (150-400); Red Blood Cell Count 4.04 X10^6/uL (4.0-5.2); Red Cell Distribution Width 12.8 % (11.6-14.8); White Blood Cell Count 4.3 X10^3/uL (4.5-11.0)
[2024-03-31 08:58] LABS: Alanine Aminotransferase 27 IU/L (<35); Albumin 4.3 g/dL (3.5-5.0); Albumin Globulin Ratio 1.7 (1.0-2.8); Alkaline Phosphatase 76 U/L (38-126); Aspartate Aminotransferase 36 IU/L (14-36); BUN Creatinine Ratio 14.6 (6-22); Blood Urea Nitrogen 14 mg/dL (7-17); Calcium 9.4 mg/dL (8.4-10.2); Carbon Dioxide 28 mmol/L (22-32); Chloride 106 mmol/L (98-107); Cholesterol 195 mg/dL (140-199); Estimated Glomerular Filt Rate > 60 mL/min (>60); Globulin 2.6 g/dL (1.7-4.1); Glucose 80 mg/dL (70-100); HDL Cholesterol 67 mg/dL (40-60); HEMOLYSIS < 15 (0-50); LDL Cholesterol Calculated 111 mg/dL (<100); Potassium 4.6 mmol/L (3.4-5.1); Sodium 139 mmol/L (137-145); Total Protein 6.9 g/dL (6.3-8.2); Triglycerides 84 mg/dL (35-150)
[2024-03-31 09:28] LABS: TSH w/ Reflex to FT4 2.62 uIU/mL (0.47-4.68)
== END ==
LOC: LAB 07:14
PROVIDERS: PCP Family Medicine; Referring Provider Family Medicine; Visit Provider Family Medicine
DX: I10 Essential (primary) hypertension (principal); E78.2 Mixed hyperlipidemia
CPT/HCPCS: 36415; 80053; 80061; 84443; 85025

== ENCOUNTER → 2024-04-04 11:00 | Outpatient (CLI) | payer OTHER, BC, SELFPAY ==
[2021-03-22 16:41] VITALS: BMI 29.0
--- NOTE | 2024-04-04 11:01 | DI.MG.S_ITS ---
BILATERAL DIGITAL SCREENING MAMMOGRAM 3D/2D WITH CAD: 04/04/2024 CLINICAL: Routine screening. Family history of breast cancer. Comparison is made to exams dated: 03/23/2023 mammogram, 11/25/2021 mammogram, and 11/24/2020 mammogram - [facility]. There are scattered areas of fibroglandular density in both breasts (category b / 25%-50% glandular tissue). Current study was also evaluated with a Computer Aided Detection (CAD) system. No significant masses, calcifications, or other findings are seen in either breast. There has been no significant interval change. IMPRESSION: NEGATIVE There is no mammographic evidence of malignancy. A 1 year screening mammogram is recommended. Based on the Tyrer Cuzick model (a risk assessment model) the patient's lifetime risk is 12.9% and her 10 year risk is 3.1%. According to the ACR, ACS, and NCCN guidelines, an annual breast MRI exam along with mammogram is recommended if the patient's lifetime risk is 20% or greater. This exam was interpreted at Station ID: [id number]. NOTE: For mammograms, a report in lay terms will be sent to the patient. Approximately 15% of breast malignancies will not be visualized mammographically. In the management of a palpable breast mass, a negative mammogram must not discourage biopsy of a clinically suspicious lesion. Electronically Signed By: Gabriel [email or web address]/[email or web address]:04/06/2024 09:53:08 letter sent: Normal Exam ACR BI-RADS Category 1: Negative [id number]
== END ==
LOC: MAMMO 11:01
PROVIDERS: PCP Family Medicine; Referring Provider Family Medicine; Visit Provider Family Medicine
DX: Z12.31 Encounter for screening mammogram for malignant neoplasm of breast (principal); Z80.3 Family history of malignant neoplasm of breast; R92.323 Mammographic fibroglandular density, bilateral breasts
CPT/HCPCS: 77063; 77067

== ENCOUNTER → 2025-01-09 11:00 | Outpatient (CLI) | payer OTHER, BC, SELFPAY ==
[2021-03-22 16:41] VITALS: BMI 29.0
[2025-01-09 13:00] LABS: Cholesterol 217 mg/dL (140-199); HDL Cholesterol 78 mg/dL (40-60); LDL Cholesterol Calculated 122 mg/dL (<100); Triglycerides 83 mg/dL (35-150)
[2025-01-09 14:36] LABS: TSH w/ Reflex to FT4 0.97 uIU/mL (0.47-4.68)
== END ==
LOC: LAB 11:01
PROVIDERS: PCP Family Medicine; Referring Provider Physician Assistant; Visit Provider Physician Assistant
DX: E78.2 Mixed hyperlipidemia (principal)
CPT/HCPCS: 36415; 80061; 84443

== ENCOUNTER → 2025-01-22 15:57 | Outpatient (CLI) | payer OTHER, BC, SELFPAY ==
[2021-03-22 16:41] VITALS: BMI 29.0
[2025-01-22 16:51] LABS: Free T3, Triiodothyronine Free 3.59 pg/mL (2.77-5.27); Free T4, Direct Thyroxine 1.12 ng/dL (0.78-2.19)
[2025-01-22 17:04] LABS: Thyroid Stimulating Hormone 1.32 uIU/mL (0.47-4.68)
[2025-01-24 10:12] LABS: Thyroid Peroxidase Antibodies 17 IU/mL (0-34)
== END ==
LOC: LAB 15:58
PROVIDERS: PCP Family Medicine; Referring Provider Physician Assistant; Visit Provider Physician Assistant
DX: I10 Essential (primary) hypertension (principal); R00.0 Tachycardia, unspecified; R25.1 Tremor, unspecified
CPT/HCPCS: 36415; 84439; 84443; 84481; 86376

== ENCOUNTER → 2025-01-28 15:26 | Outpatient (CLI) | payer OTHER, BC, SELFPAY ==
[2021-03-22 16:41] VITALS: BMI 29.0
--- NOTE | 2025-01-28 15:27 | DI.US.S_ITS ---
PROCEDURE: US THYROID INDICATIONS: Symptoms of hyperthyroidism; possible thyroid nodule TECHNIQUE: Real-time scanning was performed of the thyroid gland, with image documentation. COMPARISON: None. FINDINGS: Thyroid: Right lobe measures 4.4 x 1.0 x 1.6 cm. Left lobe measures 5.1 x 1.2 x 1.3 cm. Isthmus is 0.2 cm thick. Echotexture is homogeneous. Nodule number: 1 Location: Left posterior inferior Size: 1.3 x 0.8 x 1.0 cm Composition: Solid Echogenicity: Isoechoic Shape: wider than tall. Margins: Ill-defined Echogenic foci: None Total points: 3 ACR TI-RADS category: TI-RADS 3 IMPRESSION: Single TR-3 left thyroid nodule that does not meet size criteria for FNA or additional follow-up. ACR TI-RADS definitions and recommendations: TI-RADS 1 (benign): 0 points. FNA not needed. TI-RADS 2 (not suspicious): 2 points. FNA not needed. TI-RADS 3: 3 points. * FNA if 2.5 cm or larger, follow up if 1.5 cm or larger (at 1, 3, and 5 years). TI-RADS 4: 4-6 points. * FNA if 1.5 cm or larger, follow up if 1 cm or larger (at 1, 2, 3, and 5 years). TI-RADS 5: 7 points or more. * FNA if 1 cm or larger, follow up if 0.5 cm or larger (every year for 5 years). Approved by: Jos Nugent M.D. on 01/28/2025 at 16:37
== END ==
LOC: US 15:26
PROVIDERS: PCP Family Medicine; Referring Provider Physician Assistant; Visit Provider Physician Assistant
DX: E04.1 Nontoxic single thyroid nodule (principal); R00.0 Tachycardia, unspecified; I10 Essential (primary) hypertension; R25.1 Tremor, unspecified
CPT/HCPCS: 76536

== ENCOUNTER → 2025-03-03 16:55 | Outpatient (CLI) | payer OTHER, BC, SELFPAY ==
[2021-03-22 16:41] VITALS: BMI 29.0
--- NOTE | 2025-03-03 16:57 | DI.RAD.S_ITS ---
PROCEDURE: XR FOOT LT MIN 3V INDICATIONS: x2 years; no relief w/PT; inserts; Cortisone shot; boot TECHNIQUE: 3 views of the foot were acquired. COMPARISON: [facility], , XR FOOT LT MIN 3V, 04/09/2023, 15:59. FINDINGS: Bones: No acute fractures or dislocations. No suspicious bony lesions. Prominent plantar and small posterior calcaneal enthesophyte. Mild degenerative changes in the interphalangeal joints of the toes Soft tissues: No suspicious soft tissue calcifications. IMPRESSION: No acute osseous abnormality. Calcaneal enthesopathy. Approved by: Jos Nugent M.D. on 03/04/2025 at 4:27
== END ==
PROVIDERS: PCP Family Medicine; Referring Provider Physician Assistant; Visit Provider Physician Assistant
DX: M79.672 Pain in left foot (principal); M77.32 Calcaneal spur, left foot
CPT/HCPCS: 73630

== ENCOUNTER → 2025-04-17 11:03 | Outpatient (CLI) | payer OTHER, BC, SELFPAY ==
[2021-03-22 16:41] VITALS: BMI 29.0
--- NOTE | 2025-04-17 11:05 | DI.MG.S_ITS ---
MM screening mammo BI: 04/17/2025. BI-RADS: 1 CLINICAL: 50-year old female for bilateral screening mammogram. Tyrer-Cuzick lifetime risk of 10.3%. No personal or first-degree family history of breast cancer. Current reported family history of breast cancer: paternal aunt. PRIOR EXAMS 04/04/2024, 03/23/2023, 11/25/2021, 11/24/2020, 11/13/2019, 11/12/2018, 10/25/2017, 01/19/2016. MAMMOGRAPHY TECHNIQUE: 2D and 3D (tomosynthesis) digital mammographic views obtained, with additional images as needed for full coverage. Current study was also evaluated with a Computer Aided Detection (CAD) system. DENSITY B. There are scattered areas of fibroglandular density. MAMMOGRAPHY FINDINGS Bilateral: No suspicious mass, asymmetry, microcalcification, or other abnormality seen. IMPRESSION: * No evidence of malignancy. RECOMMENDATIONS Bilateral * Annual screening mammography. OVERALL ASSESSMENT CATEGORY BI-RADS-1: Negative. The [employer] recommends annual screening mammography beginning at age 40 for women with average risk of breast cancer. ELECTRONICALLY SIGNED: Shiv Minor M.D. on 04/19/2025 at 07:18:20 AM PT Interpreting Station ID: [id number]
== END ==
PROVIDERS: PCP Family Medicine; Referring Provider Family Medicine; Visit Provider Family Medicine
DX: Z12.31 Encounter for screening mammogram for malignant neoplasm of breast (principal); Z80.3 Family history of malignant neoplasm of breast
CPT/HCPCS: 77063; 77067

== ENCOUNTER → 2025-07-29 11:57 | Outpatient (CLI) | payer OTHER, BC, SELFPAY ==
[2021-03-22 16:41] VITALS: BMI 29.0
== END ==
PROVIDERS: PCP Family Medicine; Visit Provider Family Medicine
DX: R10.2 Pelvic and perineal pain (principal); N90.89 Other specified noninflammatory disorders of vulva and perineum
CPT/HCPCS: 87252